=== PATIENT | female | born 1960 | race Caucasian/White ===

== ENCOUNTER 2025-04-04 22:05 | Emergency (ER) | payer MEDICARE, OTHER, SELFPAY ==
[2025-04-04 22:07] VITALS: BP 176/128
[2025-04-04 22:28] LABS: Hematocrit 43.6 % (37.0-47.0); Hemoglobin 14.8 g/dL (12.0-16.0); Mean Corp Hgb Conc. 33.9 g/dL (33.0-37.0); Mean Corpuscular Volume 87.6 fL (81.0-99.0); Nucleated Red Blood Cells % 0 %; Platelet Count 171 10^3/uL (130-400); Red Cell Dist. Width 13.2 % (11.5-14.5)
[2025-04-04 23:21] LABS: ALT (SGPT) 16 U/L (0-35); AST (SGOT) 20 U/L (14-36); Albumin 4.7 g/dl (3.5-5.0); Alkaline Phosphatase 78 U/L (38-126); Blood Urea Nitrogen 7 mg/dl (7-17); Calcium 10.4 mg/dl (8.4-10.2); Carbon Dioxide 26 mmol/L (22-30); Chloride 104 mmol/L (98-107); Glucose 113 mg/dl (70-99); Lipase 52 U/L (23-300); Potassium 4.3 mmol/L (3.5-5.1); Sodium 138 mmol/L (135-145); Total Protein 7.7 g/dl (6.3-8.2); eGFR > 60.00
[2025-04-05 01:09] VITALS: BMI 43.7
[2025-04-05 01:21] VITALS: BP 191/101
--- NOTE | 2025-04-05 02:20 | ED.GENMED ---
History of Present Illness
<Xochilt Campos PA-C - Last Filed: 04/05/25 11:07>
General
Chief Complaint: Abdominal Symptoms
Source: patient
Exam Limitations: none
Time Seen by Provider: 04/05/25 01:26
Nursing documentation reviewed up to this point in time: agreed with
History of Present Illness
History of Present Illness:
Note:
CHIEF COMPLAINT(S)
Nausea, vomiting, lightheadedness, and diarrhea.
HISTORY OF PRESENT ILLNESS
The patient is a 64-year-old female with a known history of atrial fibrillation on xarelto, htn, hlp, chronic bronchitis who presents with symptoms of nausea, vomiting, lightheadedness, and diarrhea. She reports that the lightheadedness and
gastrointestinal symptoms began on Thursday, with one episode of diarrhea occurring that day and no subsequent bowel movements. She has experienced persistent nausea and lightheadedness since. The patient describes her abdominal pain as non-constant
and more of an unease than sharp pain. She vomited twice today. She reports inadequate oral intake of food and fluids recently and feels generally weakened and uninterested in engaging in regular activities. She does manage to sip sally cheikh and
Gatorade occasionally.
She also shared that she has been hospitalized twice for five days each due to similar gastrointestinal symptoms; however, despite testing, results have generally been unremarkable. Previously, she underwent an upper endoscopy which showed no
significant abnormalities. She awaits a follow-up appointment with her gastrointestinal specialist in 2 weeks. The patient is currently managed at home with nursing visits twice a week to assist with medications and dietary encouragement. These
symptoms have been ongoing for 2 months but have seemed to acutely worsened previously well controlled with reglan. She denies chest pain, shortness of breath. She denies syncopal episodes.
MEDICATIONS
The patient has been taking Reglan (metoclopramide) three times a day, with the last dose taken this afternoon.
PHYSICAL EXAM
Nursing notes reviewed and vital signs reviewed. Blood pressure was noted to be elevated, attributed to the patients current symptoms rather than medication non-compliance.
General: Patient is well appearing and in no acute distress; non-toxic
Skin: Warm and dry, no rashes or lesions
Head: Normocephalic, atraumatic
Eyes: Sclera non-icteric. EOMs intact.
Cardiac: Regular rate and rhythm, no murmurs
Peripheral Vascular: No lower extremity swelling or edema
Pulm: Normal respiratory effort, no wheezes, rales, or rhonchi
Abdomen: No abdominal tenderness to palpation, abdomen is soft
Neuro: CN II-XII intact, no focal neurologic deficits.
Psychiatric: Appropriate mood and affect.
PROBLEM LIST
Acute Problems:
- Nausea and vomiting
- Lightheadedness
- Diarrhea
- Abdominal discomfort
Chronic Problems:
- Atrial fibrillation
PLAN
- Administer intravenous metoclopramide to alleviate nausea.
- Provide intravenous fluids to address dehydration and improve nausea.
- Perform a computed tomography scan of the abdomen to evaluate for potential acute conditions such as bowel obstruction.
DIFFERENTIAL DIAGNOSIS
The Differential Diagnosis includes, in no particular order and is not limited to:
1. Gastroenteritis
2. Medication side effect
3. Peptic ulcer disease
4. Bowel obstruction
5. Electrolyte imbalance
6. Dehydration
7. Gastritis
8. Pancreatitis
9. Ischemic bowel disease
10. Labyrinthitis (related to dizziness)
CHART REVIEW
I was provided with hospital discharge summary from patient's . Patient was admitted to [facility] on and sent home on February 28, 2025. Patient was admitted for 3 days of worsening chronic nausea and vomiting and patient had
multiple recent admissions at [facility] for the same GI issues with no improvement with antiemetic and bowel regimen. She was found to have unclear etiology of her pain. They suspected that it may be related to her chronic opioid
medications. They suspected porphyria however less likely presentation of this due to life without seizure or peripheral neuropathy. She had a CAT scan of her head which was negative for bleed and she had a CT of the head and neck which was
normal. They also thought the distress discontinuation of Reglan may have contributed to her current worsening of her symptoms.
Reviewed endoscopy report from 03/16/2025, the esophagus was found to be normal and D2 colon appeared normal impression was normal esophagus with mild leak erythematous mucosa in the gastric body and antrum
Reviewed ER physician documentation from 12/03/22
MDM/DISPO
The patient is a 64-year-old female with a known history of atrial fibrillation on xarelto, htn, hlp, chronic bronchitis who presents with symptoms of nausea, vomiting, lightheadedness, and diarrhea. She reports that the lightheadedness and
gastrointestinal symptoms began on Thursday, with one episode of diarrhea occurring that day and no subsequent bowel movements. she was just seen and hospitalized and [facility] for similar symptoms. She had been ruled out for ischemic bowel
disease, ACS, had normal upper endoscopy, and her symptoms were attributed to oxycodone use. Today she feels like her symptoms are worse. This weekend she had trouble getting food down without vomiting. On exam, she is well appearing in no acute
distress. No abdominal tenderness.
Blood work undetectable. Troponin normal. CT scan without acute findings. Patient received IV fluids, reglan, zofran, pepcid feeling much better. Patient has follow up with GI in 2 weeks.
7 AM�Case signed out to Tereso [facility] pending repeat troponin
Review of Systems
<Xochilt Campos PA-C - Last Filed: 04/05/25 11:07>
Review of Systems
All Other Systems: ROS reviewed and negative except as documented in HPI and ROS
Phy Exam
<Xochilt Campos PA-C - Last Filed: 04/05/25 11:07>
Physical Exam
Physical Exam:
see hpi
Course
<Xochilt Campos PA-C - Last Filed: 04/05/25 11:07>
Orders/Labs/Results
Orders:
Orders
04/04/25 22:18
Complete Blood Count/With Diff Urgent
Comprehensive Metabolic Panel Urgent
Lactic Acid Urgent
Lipase Urgent
04/05/25 01:42
Diphenhydramine [Benadryl] 12.5 mg IV NOW STA
Metoclopramide [Reglan] 10 mg IV NOW STA
04/05/25 01:43
CT Abd/pelvis W Iv Cont Urgent
Comment:
Reason For Exam: periumbilical pain
04/05/25 03:13
0.9% Sodium Chloride 1000 ml [Nss] 1,000 ml IV BOLUS
04/05/25 03:16
Electrocardiogram (*1) Urgent
Reason for Study: Other
Other Reason for Exam: htn, nausea
Comment: hypertension, nausea
04/05/25 03:26
Vital Signs- Treatment ONCE
Frequency: q30m
04/05/25 03:50
Troponin I Urgent
04/05/25 05:37
Famotidine [Pepcid] 20 mg IV NOW STA
Ondansetron Injectable [Zofran] 4 mg IV NOW STA
04/05/25 05:57
Electrocardiogram (*1) Urgent
Reason for Study: Chest Pain
04/05/25 07:07
Troponin I Urgent
Abnormal Lab Results
04/04/25
22:18
MPV 11.8 H fL
(7.4-10.4)
Lymphocytes % 17.8 L %
(20.5-51.1)
Creatinine 0.5 L mg/dL
(0.6-1.0)
Glucose 113 H mg/dl
(70-99)
Calcium 10.4 H mg/dl
(8.4-10.2)
04/04/25 22:18
04/04/25 22:18
Vital Signs
Initial and Last Documented VS:
Initial Vital Signs
Temp Pulse Resp BP Pulse Ox
98.1 F 72 16 176/128 98
04/04/25 22:07 04/04/25 22:07 04/04/25 22:07 04/04/25 22:07 04/04/25 22:07
Last Documented Vital Signs
Temp Pulse Resp BP Pulse Ox
98.1 F 68 18 174/82 96
04/04/25 22:07 04/05/25 08:15 04/05/25 08:15 04/05/25 06:53 04/05/25 08:00
<Dimitri Serrato PA-C - Last Filed: 04/05/25 08:15>
Orders/Labs/Results
Orders:
Orders
04/04/25 22:18
Complete Blood Count/With Diff Urgent
Comprehensive Metabolic Panel Urgent
Lactic Acid Urgent
Lipase Urgent
04/05/25 01:42
Diphenhydramine [Benadryl] 12.5 mg IV NOW STA
Metoclopramide [Reglan] 10 mg IV NOW STA
04/05/25 01:43
CT Abd/pelvis W Iv Cont Urgent
Comment:
Reason For Exam: periumbilical pain
04/05/25 03:13
0.9% Sodium Chloride 1000 ml [Nss] 1,000 ml IV BOLUS
04/05/25 03:16
Electrocardiogram (*1) Urgent
Reason for Study: Other
Other Reason for Exam: htn, nausea
Comment: hypertension, nausea
04/05/25 03:26
Vital Signs- Treatment ONCE
Frequency: q30m
04/05/25 03:50
Troponin I Urgent
04/05/25 05:37
Famotidine [Pepcid] 20 mg IV NOW STA
Ondansetron Injectable [Zofran] 4 mg IV NOW STA
04/05/25 05:57
Electrocardiogram (*1) Urgent
Reason for Study: Chest Pain
04/05/25 07:07
Troponin I Urgent
Abnormal Lab Results
04/04/25
22:18
MPV 11.8 H fL
(7.4-10.4)
Lymphocytes % 17.8 L %
(20.5-51.1)
Creatinine 0.5 L mg/dL
(0.6-1.0)
Glucose 113 H mg/dl
(70-99)
Calcium 10.4 H mg/dl
(8.4-10.2)
04/04/25 22:18
04/04/25 22:18
Vital Signs
Initial and Last Documented VS:
Initial Vital Signs
Temp Pulse Resp BP Pulse Ox
98.1 F 72 16 176/128 98
04/04/25 22:07 04/04/25 22:07 04/04/25 22:07 04/04/25 22:07 04/04/25 22:07
Last Documented Vital Signs
Temp Pulse Resp BP Pulse Ox
98.1 F 68 18 174/82 96
04/04/25 22:07 04/05/25 08:15 04/05/25 08:15 04/05/25 06:53 04/05/25 08:00
<Xochilt Campos PA-C - Last Filed: 04/05/25 11:07>
*Pulse Oximetry
SaO2: 98
Oxygen Mode of Delivery: Room air
Patient hypoxic: no
*Critical Care Note
Total Time (30-74mins, 75-104mins- exclusive of procedures): Not Applicable
<Dimitri Serrato PA-C - Last Filed: 04/05/25 08:15>
Update Note
Update Note:
DC of care of patient upon pending troponin. Repeat troponin improved. No acute findings on today's workup. Stable for discharge
ED Attending Note
Keishalt;Xochilt Campos PA-C - Last Filed: 04/05/25 11:07>
-
Portions of this chart may have been created with voice recognition software.� Occasional wrong word or��sound alike� substitutions may have occurred due to the inherent limitations of voice recognition software.
Discharge Plan
Departure
Patient Disposition: Home (Routine Discharge)
Date of Disposition: 04/05/25
Time of Disposition: 08:08
Patient with high blood pressure during this ER visit?: Yes
Condition: Good
Discharge Problem:
Nausea & vomiting, Episodic lightheadedness
Instructions: Nausea and Vomiting, Adult (DC), BLOOD PRESSURE
Prescriptions:
New
omeprazole 40 mg capsule,delayed release(DR/EC)
40 mg PO DAILY Qty: 14 0RF
No Action
losartan 50 mg Tablet
75 mg PO DAILY
atorvastatin 10 mg Tablet
10 mg PO QPM
metoprolol succinate 100 mg Tablet Extended Release 24 Hr
100 mg PO DAILY
pantoprazole 40 mg Tablet,Delayed Release (Dr/Ec)
40 mg PO TID PRN (Reason: nausea)
levothyroxine 200 mcg Tablet
200 mcg PO DAILY
scopolamine base 1 mg over 3 days Patch 3 Day
1 patch TRANSDERMAL Q3D
buprenorphine 5 mcg/hour Patch Weekly
1 patch TRANSDERMAL Q7D
Xarelto 20 mg Tablet
20 mg PO QPM
acetaminophen [Tylenol Arthritis] 650 mg Tablet Extended Release
1,300 mg PO Q8H PRN (Reason: headaches)
alum-mag hydroxide-simeth [Mylanta] 200-200-20 mg/5 mL Suspension
30 ml PO TID
polyethylene glycol 3350 [Miralax] 17 gram/dose Powder
4 g PO DAILY PRN (Reason: constipation)
metoclopramide HCl [Reglan] 10 mg Tablet
10 mg PO TID PRN (Reason: nausea)
Zofran
4 mg PO TID PRN (Reason: nausea)
senna
2 tab PO TID PRN (Reason: constipation)
Referrals:
UNKNOWN - PT DOES,NOT KNOW [Family Provider]
Activity Restrictions/Additional Instructions:
Please follow-up with your scheduled GI appointment in 2 weeks. Please continue to monitor your symptoms. Please follow-up with your scheduled cardiology appointment.
PLEASE RETURN EMERGENCY DEPARTMENT SHOULD YOU DEVELOP ACUTE WORSENING OR SYMPTOMS, CHEST PAIN, SHORTNESS OF BREATH INABILITY TOLERATE ORAL INTAKE, FEVERS OR CHILLS, RECTAL BLEEDING, DARK TARRY STOOLS, OR ANY OTHER SIGNS OR SYMPTOMS WORRISOME TO YOU.
Interventions
Interventions:
*Risk Screen - Suicide Last Done: 04/05/25 01:09
*General Assessment Last Done: 04/05/25 01:09
*Neglect/Abuse Screening Last Done: 04/05/25 07:23
*ED- Fall Risk Assessment Last Done: 04/05/25 01:09
*ED COVID-19 Vaccine History Last Done: 04/05/25 01:09
*Nursing Disposition Last Done: 04/05/25 08:28
AC-Dqiszi-Mewiedlqtt Assessment Last Done: 04/05/25 06:59
Discharge Date and Time
Discharge Date/Time: 04/05/25 08:40
Print Language: BELARUSIAN
[2025-04-05 02:24] VITALS: BP 175/72
[2025-04-05] MEDS: REGLAN 10 MG IV (02:26)
[2025-04-05] MEDS: BENADRYL 12.5 MG IV (02:26)
[2025-04-05 03:00] VITALS: BP 158/94
[2025-04-05] MEDS: NSS 1000 IV (03:15)
[2025-04-05 04:00] VITALS: BP 169/88
[2025-04-05 04:26] LABS: Troponin I 0.019 ng/ml
[2025-04-05 05:00] VITALS: BP 166/73
[2025-04-05] MEDS: PEPCID 20 MG IV (05:51)
[2025-04-05] MEDS: ZOFRAN 4 MG IV (05:52)
[2025-04-05 06:53] VITALS: BP 174/82
[2025-04-05 07:50] LABS: Troponin I 0.013 ng/ml
== END 2025-04-05 08:40 | disposition home or self-care (01) ==
LOC: EMR 22:05
PROVIDERS: Physician Assistant; EMERGENCY PHYSICIAN Emergency Medicine
DX: R11.2 Nausea with vomiting, unspecified (principal); E86.0 Dehydration; R42 Dizziness and giddiness; I48.91 Unspecified atrial fibrillation; E78.5 Hyperlipidemia, unspecified; I10 Essential (primary) hypertension; Z79.01 Long term (current) use of anticoagulants
CPT/HCPCS: 96374; 96375; 96361; 99284; 74177; 80053; 83605; 83690; 84484; 85025; 93005; Q9967

== ENCOUNTER 2025-05-01 08:05 | Inpatient (IN) | payer MEDICARE, OTHER, SELFPAY ==
[2025-04-25] VITALS (12 sets, daily range): BP systolic 118–160; BP diastolic 60–97; PULSE 76–84; BMI 40.1; BMI 38.6
[2025-04-25 14:56] LABS: Hematocrit 45.7 % (37.0-47.0); Hemoglobin 16.0 g/dL (12.0-16.0); Mean Corp Hgb Conc. 35.0 g/dL (33.0-37.0); Mean Corpuscular Volume 85.6 fL (81.0-99.0); Nucleated Red Blood Cells % 0 %; Platelet Count 190 10^3/uL (130-400); Red Cell Dist. Width 13.3 % (11.5-14.5)
[2025-04-25 15:08] LABS: ALT (SGPT) 14 U/L (0-35); AST (SGOT) 20 U/L (14-36); Albumin 4.4 g/dl (3.5-5.0); Alkaline Phosphatase 84 U/L (38-126); Blood Urea Nitrogen 8 mg/dl (7-17); Calcium 9.8 mg/dl (8.4-10.2); Carbon Dioxide 24 mmol/L (22-30); Chloride 100 mmol/L (98-107); Glucose 128 mg/dl (70-99); Lipase 81 U/L (23-300); Potassium 4.4 mmol/L (3.5-5.1); Sodium 134 mmol/L (135-145); Total Protein 7.4 g/dl (6.3-8.2); eGFR > 60.00
--- NOTE | 2025-04-25 17:01 | ED.GENMED ---
History of Present Illness
General
Chief Complaint: Weakness
Source: patient
Exam Limitations: none
Time Seen by Provider: 04/25/25 16:33
Nursing documentation reviewed up to this point in time: agreed with
History of Present Illness
History of Present Illness:
Patient is a 64-year-old male with history of A-fib patient was seen here previously April 05, 2025 hypertension hyperlipidemia presents to the ER for evaluation of GI issues since January and it was documented then that patient was admitted to [facility] in February for chronic nausea and vomiting and has had previous multiple missions at [facility] as well. At that time it was thought to be attributed to her chronic opiate use (for chronic hip pain )and there was no definitive etiology
for her pain. She has however stopped her buprenorphine patch April 07 and symptoms have not resolved in fact they have worsened.
It was documented that while hospitalized in February patient was evaluated and ruled out for ischemic bowel disease ACS and had a normal upper endoscopy.
Patient is followed by Dr. Nassar ( GI at [facility] ) patient saw him last Thursday and was started on Questran for loose stools. She only to take it 2 days and her appetite even worsened. Patient presents today because of complete weakness and
no appetite at all. She could barely stand and feels very dizzy when she stands up. Family reports she has been laying in bed and not able to get out of bed. She has not been eating or drinking.
She currently denies abd pain.
Family reports her symptoms have been continuing to get worse since January despite everything coming back as negative.
Phy Exam
General Physical Exam
General Presentation: no apparent distress
General age: appears stated age
General Skin: warm and dry
General Habitus: normal
General Mental: alert
General Hydration: dry mucous membranes
Cardiovascular Exam
Cardiovascular Exam: irregularly irregular
Pulmonary Exam
Pulmonary Exam: lungs clear and no respiratory distress
Gastrointestinal Exam
Gastrointestinal Exam: non tender and soft
Neurological Exam
Neurological Exam: alert
Musculoskeletal Exam
Musculoskeletal Exam: full ROM
Skin Exam
Skin Exam: normal color and warm/dry
Psychiatric Exam
Psychiatric Exam: normal mood/affect
Course
Orders/Labs/Results
Orders:
Orders
04/25/25 14:43
Complete Blood Count/With Diff Urgent
Comprehensive Metabolic Panel Urgent
Lipase Urgent
04/25/25 17:16
0.9% Sodium Chloride 1000 ml [Nss] 1,000 ml IV BOLUS
Ondansetron Injectable [Zofran] 4 mg IV NOW STA
04/25/25 17:17
IV Insert/Care/Rem.- Treatment PRN
04/25/25 17:18
Orthostatic VS- Treatment ONCE
04/25/25 18:18
UA Reflex to Culture [Urinalysis Reflex To Culture] Urgent
Date Specimen was Collected: 04/25/25
Time Specimen was Collected: 18:01
Urine Microscopic Reflex Cult Urgent
04/25/25 19:41
Admit/Transfer Patient As Directed
Co-Sign Provider:
Level of Care: Observation services
Assign to:: Medical/Surgical
Physician / Group: Brinda
Diagnosis: Anorexia
PRN Pain Medication Management As Directed
May give lesser potent ordered pain med per pt: Yes
preference::
Protocol:: Medication orders for pain may be administered in a
manner that supports deferring to patient preference
when the pt is:
- Requesting an ordered lesser potent pain medication.
Least to most potent pain medications are defined
as: acetaminophen < NSAID < tramadol < opioids
(morphine, oxycodone, hydromorphone).
- Requesting a lesser dose of the same medication IF
ORDERED.
- Requesting a less intrusive route of administration
if both routes are prescribed by the provider (PO <
IV).
04/25/25 19:42
Code Status As Directed
Resuscitation Status: Full Code
04/25/25 19:46
Alprazolam [Xanax] 0.25 mg PO NOW STA
Atorvastatin [Lipitor] 10 mg PO NOW STA
04/25/25 19:47
Rivaroxaban [Xarelto] 20 mg PO ONCE ONE
04/25/25 20:35
Acetaminophen [Tylenol] 650 mg PO Q4HPRN PRN
Bisacodyl [Dulcolax] 10 mg RECTAL [id number] PRN
Dextrose 5%/Lactringers 1000ML [D5lr] 1,000 ml IV 100 mls/hr
Docusate W/Senna [Senokot-S] 1 tablet PO BIDPRN PRN
Ondansetron Injectable [Zofran] 4 mg IV Q6HPRN PRN
Oxybutynin Chloride [Ditropan] 5 mg PO BID
Polyethylene Glycol Powder [Miralax] 17 grams PO DAILYPRN PRN
04/25/25 20:35
VTE Contraindication Routine
VTE Mechanical Device Contraindication: Medical Contraindication
Pharmocologic Contraindication: Medical Contraindication
Activity As Directed
Activity Level: With Assistance
Orthostatic Vital Signs As Directed
Orthostatic VS Frequency: Daily
Vital Signs As Directed
Frequency: Per unit guidelines
Pulse Ox/spot Check [RESP] Routine
Quantity: 1
Pt Eval And Treat Routine
Activity Level: With Assistance
04/26/25 Breakfast
Regular
Oral Supplement (If unsure of flavor order apple or vanilla): Ensure Enlive Vanilla
Supplement Frequency: TID
Basic Metabolic Panel IN AM
Complete Blood Count/No Diff IN AM
Lipase IN AM
Magnesium IN AM
Prealbumin (Transthyretin) IN AM
TSH IN AM
Vitamin B12 IN AM
Levothyroxine [Synthroid] 200 mcg PO DAILY @ 0600
04/26/25 08:00
Losartan [Cozaar] 100 mg PO DAILY
Metoprolol Xl [Toprol Xl] 100 mg PO DAILY
Pantoprazole [Protonix] 40 mg PO DAILY
Sertraline HCl [Zoloft] 100 mg PO DAILY
04/26/25 18:00
Atorvastatin [Lipitor] 10 mg PO QPM
Rivaroxaban [Xarelto] 20 mg PO QPM
Abnormal Lab Results
04/25/25 04/25/25
14:43 18:18
MPV 12.2 H fL
(7.4-10.4)
Absolute Neuts (auto) 7.9 H 10^3/uL
(1.4-6.5)
Absolute Lymphs (auto) 0.8 L 10^3/uL
(1.2-3.4)
Absolute Monos (auto) 0.7 H 10^3/uL
(0.1-0.6)
Neutrophils % 82.9 H %
(42.2-75.2)
Lymphocytes % 8.3 L %
(20.5-51.1)
Sodium 134 L mmol/L
(135-145)
Creatinine 0.5 L mg/dL
(0.6-1.0)
Glucose 128 H mg/dl
(70-99)
Total Bilirubin 1.9 H mg/dl
(0.2-1.3)
Urine Albumin (Reflex) 2+ A
(Neg - Trace)
04/25/25 14:43
04/25/25 14:43
Vital Signs
Initial and Last Documented VS:
Initial Vital Signs
Temp Pulse Resp BP Pulse Ox
97.7 F 85 20 152/92 99
04/25/25 14:37 04/25/25 14:37 04/25/25 14:37 04/25/25 14:37 04/25/25 14:37
Last Documented Vital Signs
Temp Pulse Resp BP Pulse Ox
97.7 F 88 18 155/75 98
04/25/25 20:42 04/25/25 20:42 04/25/25 20:42 04/25/25 20:42 04/25/25 20:42
MDM/Problems Addressed
Differential Diagnosis Includes:
Not limited to weakness dehydration, electrolyte abnormality
MDM/Problems Addressed:
As documented patient is a 64-year-old female with chronic nausea vomiting. Symptoms started in January with no clear diagnosis. Patient has had a full workup at [facility] with multiple scans labs etc. with no diagnosis. It was thought at 1
point that this was from chronic narcotics. She was on a pain patch due to osteoarthritis of the left hip however that was stopped April 07. Symptoms seem to have worsened. Patient complaining of extreme weakness dizziness and unable to get out
of bed. Family reports patient has been in bed for the past several days. Patient is dry on exam though no acute concerning findings on labs. She was hydrated here and given Zofran will require mission for dehydration weakness.
*Pulse Oximetry
SaO2: 99
Oxygen Mode of Delivery: Room air
Patient hypoxic: no
*Critical Care Note
Total Time (30-74mins, 75-104mins- exclusive of procedures): Not Applicable
ED Attending Note
-
Portions of this chart may have been created with voice recognition software.� Occasional wrong word or��sound alike� substitutions may have occurred due to the inherent limitations of voice recognition software.
Discharge Plan
Departure
Patient Disposition: Admit
Date of Disposition: 04/25/25
Time of Disposition: 19:16
Admit to: Med/Surg
Admit to doctor: hospitalist
Presentation/result/management discussed w/ accepting MD/DO: Hospitalist
Patient with high blood pressure during this ER visit?: No
Condition: Fair
Covid-19: Not Applicable
Discharge Problem:
Weakness, Acute dehydration, Dizziness
Interventions
Interventions:
*Risk Screen - Suicide Last Done: 04/25/25 14:37
*General Assessment Last Done: 04/25/25 14:37
*Neglect/Abuse Screening Last Done: 04/25/25 17:49
*ED- Fall Risk Assessment Last Done: 04/25/25 17:49
*ED COVID-19 Vaccine History Last Done: 04/25/25 17:49
*Nursing Disposition Last Done: 04/25/25 20:26
ED- Cardiac Assessment Last Done: 04/25/25 17:59
ED- Neurological Assessment Last Done: 04/25/25 17:59
ED- Pulmonary Assessment Last Done: 04/25/25 17:59
Discharge Date and Time
Discharge Date/Time: 04/25/25 20:26
[2025-04-25] MEDS: NSS 1000 IV (17:46)
[2025-04-25] MEDS: ZOFRAN 4 MG IV ×2 (17:46→22:33)
[2025-04-25 18:28] LABS: Urine Character Clear (Clear)
[2025-04-25 18:40] LABS: Urine Red Blood Cell 0-2 /HPF (0-2)
--- NOTE | 2025-04-25 19:20 | HPS.HSE ---
Family Physician
-
Family Physician: Alicia Delatorre NP
Chief Complaint
-
Weakness, intractable nausea vomiting
History of Present Illness
This is a 64-year-old female with past medical history significant for atrial fibrillation on anticoagulation, status post ablation, hyperlipidemia, hypothyroid, lower urinary tract symptoms, chronic fractures right knee status post multiple joint
replacements who presents to the emergency department with ongoing intractable nausea and vomiting and weakness since January.
Patient reports admission to [facility] in February for symptoms and had extensive workup and no acute findings determined. It was thought that this could be secondary to opiate use for which she buprenorphine patch and additional opioids was
discontinued in April. She has had upper endoscopy that was normal. She had imaging and evaluation that ruled out ischemic bowel disease as well as ACS. She reported that she was recently started on Questran for loose stools/IBS which resulted
in improvement in her bowel habits however she developed a significant decreased appetite. She reports nausea with any attempted food intake. To smell of food results and nausea. She is not vomiting. She does not have any trouble swallowing.
She denies regurgitation. She denies any chest pain. Patient reports that since the last 7 days she has had no p.o. intake. She became lightheaded and dizzy about 2 days ago. She actually also fell. She has increased lethargy and weakness and
states she has not been able to get out of bed for the last 7 days. She reports intermittent night sweats over the last 2 days. She denies any fevers chills or shortness of breath. She denies any rash. She reports feeling anxious.
In the emergency department, patient had a blood pressure of 118/60, pulse of 78 satting at 7% on room air. She was afebrile. CBC was unremarkable, electrolytes BUN/creatinine were all in the normal range. LFTs were normal. UA was unremarkable.
Medical History
Past Medical History
Past Medical History: Reports Arrhythmia (Proximal atrial fibrillation status post ablation), Hypercholesterolemia, Hypothyroidism, Psychiatric (Depression) and Other
Past Surgical History: Reports Appendectomy and Orthopedic (Right knee replacement, left knee replacement, right hip replacement)
Social History
Tobacco: Non-smoker
Alcohol: None
Drug: None
Personal:
Living: With Family
Family History
Family History: Not pertinent
Allergies / Home Medications
Allergies reflects when Allergies were last updated in [employer].
Home Medications with original date entered in [employer]
Allergy/Medication List:
Allergies
Allergy/AdvReac Type Severity Reaction Status Date / Time
lisinopril Allergy cough Verified 04/25/25 14:37
Home Medications
Zofran 4 mg PO TID PRN nausea 04/05/25
acetaminophen 650 mg tablet,extended release 1,300 mg PO Q8H PRN headaches 04/05/25
aluminum-mag hydroxide-simethicone 200 mg-200 mg-20 mg/5 mL oral susp 30 ml PO TID nausea 04/05/25
atorvastatin 10 mg tablet 10 mg PO QPM 04/05/25
buprenorphine 5 mcg/hour weekly transdermal patch 1 patch transdermal Q7D 04/05/25
levothyroxine 200 mcg tablet 200 mcg PO DAILY 04/05/25
losartan 50 mg tablet 75 mg PO DAILY 04/05/25
metoclopramide HCl 10 mg tablet (Reglan) 10 mg PO TID PRN nausea 04/05/25
metoprolol succinate 100 mg tablet,extended release 24 hr 100 mg PO DAILY 04/05/25
omeprazole 40 mg capsule,delayed release 40 mg PO DAILY #14 caps 04/05/25
pantoprazole 40 mg tablet,delayed release 40 mg PO TID PRN nausea 04/05/25
polyethylene glycol 3350 17 gram/dose oral powder (Miralax) 4 g PO DAILY PRN constipation 04/05/25
rivaroxaban 20 mg tablet (Xarelto) 20 mg PO QPM 04/05/25
scopolamine base 1 mg over 3 days transdermal patch 1 patch transdermal Q3D 04/05/25
senna 2 tab PO TID PRN constipation 04/05/25
Review of Systems
-
History Source: Patient
Constitutional: Reports Fatigue and Night Sweats; Denies Fever
EENT: Reports No Symptoms
Respiratory: Reports No Symptoms
Cardiac: Reports No Symptoms
Abdomen/GI: Reports Nausea and Anorexia
: Reports No Symptoms
Musculoskeletal: Reports No Symptoms
Skin: Reports No Symptoms
Neurological: Reports Weakness
Endocrine: Reports No Symptoms
Hematologic/Lymphatic: Reports No Symptoms
Psych: Reports No Symptoms
Physical Exam
Vital Signs
Vital Signs
Temp Pulse Resp BP Pulse Ox
97.7 F 78 16 118/60 97
04/25/25 14:37 04/25/25 19:00 04/25/25 19:00 04/25/25 19:00 04/25/25 19:00
Physical Exam
General: Well Developed, Well Nourished, No Apparent Distress and Morbidly Obese
HEENT: NormoCephalic, Moist mucous membranes and Atraumatic
Respiratory: Clear
Cardiac: S1/S2 and Regular Rhythm; No Murmur or Rub
GI: Soft, Non Tender, Non Distended and Normal Bowel Sounds; No Organomegaly
Rectal: Deferred by Provider
Musculoskeletal: No Clubbing, No Cyanosis and No Edema
Skin: No Rash
Neuro: AO x 3 and Nonfocal/grossly intact
Psych: Calm
Laboratory Results
-
04/25/25 14:43
04/25/25 14:43
Laboratory Results
Total Bilirubin 1.9 mg/dl (0.2-1.3) H 04/25/25 14:43
AST 20 U/L (14-36) 04/25/25 14:43
ALT 14 U/L (0-35) 04/25/25 14:43
Alkaline Phosphatase 84 U/L (38-126) 04/25/25 14:43
Lipase 81 U/L (23-300) 04/25/25 14:43
Data Reviewed
-
Lab Data: Labs Reviewed by me
Old Records: Reviewed
Impression/Plan
-
IMPRESSION:
64-year-old female with past medical history of paroxysmal atrial fibrillation, hypothyroid, hyperlipidemia, hypertension presenting to the Emergency Department with essentially failure to thrive in the setting of worsening appetite over the last
few weeks and significantly decreased appetite over the last 7 days with no p.o. intake, sleepiness lethargy and dehydration. She has had extensive workup which has included an EGD showing no abnormalities, workup for ischemic bowel which was
negative, and no evidence for gastroparesis, malabsorption or pancreatic insufficiency. She has no acute symptoms at this time.
PLAN:
Loss of appetite -unclear etiology with negative workup back pain as stated above. She is however dehydrated and hypovolemic at this time.
-Admit to MedSurg observation
-Continue IV fluids with dextrose
-Continue antiemetics and PPI
-Protein calorie malnutrition labs
-GI consultation
-Consider initiation of mirtazapine
-Check thyroid
-Orthostatic vital sign
-PT OT
Atrial fibrillation -permanent A-fib, rate controlled
-Continue oral Xarelto
Hyperlipidemia
-Continue atorvastatin
Hypothyroid
- Continue levothyroxine
DVT prophylaxis�on Xarelto
CODE STATUS�full code
[2025-04-25] MEDS: XANAX 0.25 MG PO ×2 (20:17→22:14)
[2025-04-25] MEDS: XARELTO 20 MG PO (20:18)
[2025-04-25] MEDS: LIPITOR 10 MG PO (20:18)
[2025-04-25] MEDS: DITROPAN 5 MG PO (22:03)
[2025-04-25] MEDS: D5LR 1000 IV (22:03)
--- NOTE | 2025-04-25 22:53 | PTCARENOTE ---
Patient arrived via stretcher. AAOX3 with forgetfulness. Bed alarm applied to bed due to forgetfulness and weakness. No c/o pain or discomfort. Patient did complain of anxiety. STAT one time medication given for anxiety given. Oriented to unit. Call
cook within reach.
--- NOTE | 2025-04-26 02:43 | DOWNTIME ---
There was a [employer] Client Government Affairs Director Downtime on 04/26/2025 from 0100 to 04/26/2025 at 0235. Downtime documentation of patient's care, including medication administrations, has been reconciled in the electronic record per guidelines. Refer to the
patient's paper chart under the miscellaneous tab to see printed paper medication records and downtime forms.
[2025-04-26] MEDS: SYNTHROID 200 MCG PO (05:59)
[2025-04-26 07:13] LABS: Hematocrit 42.1 % (37.0-47.0); Hemoglobin 14.0 g/dL (12.0-16.0); Mean Corp Hgb Conc. 33.3 g/dL (33.0-37.0); Mean Corpuscular Volume 87.7 fL (81.0-99.0); Platelet Count 153 10^3/uL (130-400); Red Cell Dist. Width 13.6 % (11.5-14.5)
[2025-04-26 07:46] LABS: Blood Urea Nitrogen 6 mg/dl (7-17); Calcium 9.7 mg/dl (8.4-10.2); Carbon Dioxide 26 mmol/L (22-30); Chloride 105 mmol/L (98-107); Estimated Creatinine Clearance > 125 ml/min; Glucose 106 mg/dl (70-99); Lipase 50 U/L (23-300); Magnesium 1.6 mg/dl (1.6-2.3); Potassium 3.6 mmol/L (3.5-5.1); Sodium 138 mmol/L (135-145); eGFR > 60.00
[2025-04-26 07:55] VITALS: BP 154/98
[2025-04-26 07:56] LABS: Prealbumin (Transthyretin) 12.8 mg/dl (17.6-36.0)
[2025-04-26 08:24] LABS: TSH < 0.02 uIU/ml (0.47-4.68)
[2025-04-26 08:43] LABS: Vitamin B12 974 pg/ml (239-931)
[2025-04-26] MEDS: COZAAR 100 MG PO (08:44)
[2025-04-26] MEDS: PROTONIX 40 MG PO (08:44)
[2025-04-26] MEDS: ZOLOFT 100 MG PO (08:45)
[2025-04-26] MEDS: TOPROL XL 100 MG PO (08:45)
[2025-04-26] MEDS: DITROPAN 5 MG PO ×2 (08:45→20:16)
[2025-04-26] MEDS: D5LR 1000 IV ×2 (08:54→18:51)
--- NOTE | 2025-04-26 11:11 | CM ---
CM reviewed chart, patient seen bedside with daughter, initial assessment completed. Patient resides with her and son in a ranch style home, 3-4 steps to enter. Patient reports having a walker and cane in the home, is current with [facility],
denies SNF. PCP Lashay Delatorre, pharmacy [facility], patient does not believe she has prescription coverage. Patient denies insecurities at home. IVERSON form verbally reviewed, refused to sign, provided with copy, placed in chart. PT
ordered, will follow for any recommendations. CM will continue to follow for all discharge planning needs.
Plan; TBD, watch for therapy recommendations
[2025-04-26 11:41] VITALS: BMI 40.1
--- NOTE | 2025-04-26 12:04 | W.PN.HOSP.TC ---
Today's Communication/Plan
-
IVF
encourage diet
Check T4
GI consulted on admit
Bowel regimen
Assessment / Plan
Assessment / Plan
IMPRESSION:
64F w/ paroxysmal atrial fibrillation, hypothyroid, hyperlipidemia, hypertension p/w essentially failure to thrive in the setting of worsening appetite over the last few weeks and significantly decreased appetite over the last 7 days with no p.o.
intake, sleepiness lethargy and dehydration. She has had extensive workup which has included an EGD showing no abnormalities, workup for ischemic bowel which was negative, and no evidence for gastroparesis, malabsorption or pancreatic
insufficiency.
PLAN:
Loss of appetite -unclear etiology with negative workup back pain as stated above. She is however dehydrated and hypovolemic at this time.
renew IV fluids with dextrose
-Continue antiemetics and PPI
-Protein calorie malnutrition labs
-GI consultation
-Consider initiation of mirtazapine
-Orthostatic vital sign
-PT OT
Atrial fibrillation -permanent A-fib, rate controlled
-Continue oral Xarelto and toprol XL
Hyperlipidemia
-Continue atorvastatin
Hypothyroid
-on levothyroxine
low TSH <0.02
check T4
DVT prophylaxis�on Xarelto
CODE STATUS�full code
Anticipated Discharge: 24 - 48 hours
Subjective/Interval History
-
Date of Service: April 26, 2025
Patient ate a tiny bit of food this morning, still feeling nauseous but not vomiting. Denies abdominal pain. Notes that she has not had a bowel movement since Thursday. Daughter is at bedside notes that she has been having some episodes over the
last few months of shaking in her arms, cognitive slowing, headaches and within the last week a one-time flash of light while she was sleeping, and for these reasons she was supposed to have an MRI brain as an outpatient but has yet to be ordered.
Denies any weakness in either arm or leg. Notes bilateral toe numbness, denies neuropathy. Denies any changes in her vision.
Objective Data
-
Labs:
Laboratory Results
04/26/25
06:52
WBC 6.4
Hgb 14.0
Hct 42.1
Plt Count 153
Sodium 138
Potassium 3.6
Chloride 105
Carbon Dioxide 26
BUN 6 L
Creatinine 0.5 L
Glucose 106 H
Calcium 9.7
Vital Signs:
Vital Signs
Temp Pulse Resp BP Pulse Ox
97.7 F 87 18 154/98 98
04/26/25 07:55 04/26/25 07:55 04/26/25 07:55 04/26/25 08:44 04/26/25 08:00
Review of Systems
-
All other systems: Reviewed and negative
Physical Exam
-
General: No Apparent Distress
HEENT: Moist Mucous Membranes, Anicteric and PERRLA
Respiratory: Clear to Auscultation; Negative Wheezes, Rales or Rhonchi
Cardiac: Regular Rhythm and S1/S2; Negative Murmur, Rub or Gallop
GI: Soft, Nontender, Nondistended and Normal Bowel Sounds
Musculoskeletal: No Edema
Skin: Warm and Dry; Negative Rash, Ulcers or Lesions
Neuro: Awake and AO x 3
Hematologic / Lymphatic: No Lymphadenopathy
Psych: Calm
Data Reviewed
-
Labs: Labs Reviewed by me
[2025-04-26 15:03] VITALS: BP 124/67
[2025-04-26] MEDS: LIPITOR 10 MG PO (17:39)
[2025-04-26] MEDS: XARELTO 20 MG PO (17:40)
[2025-04-26] MEDS: XANAX 0.25 MG PO (18:54)
[2025-04-26] MEDS: SENOKOT-S 1 TABLET PO (20:16)
[2025-04-26 23:36] VITALS: BP 150/73
[2025-04-27] MEDS: D5LR 1000 IV ×2 (04:05→14:26)
[2025-04-27] MEDS: ZOFRAN 4 MG IV (06:33)
[2025-04-27 07:29] LABS: Hematocrit 38.3 % (37.0-47.0); Hemoglobin 12.9 g/dL (12.0-16.0); Mean Corp Hgb Conc. 33.7 g/dL (33.0-37.0); Mean Corpuscular Volume 88.5 fL (81.0-99.0); Nucleated Red Blood Cells % 0 %; Platelet Count 136 10^3/uL (130-400); Red Cell Dist. Width 13.7 % (11.5-14.5)
[2025-04-27] MEDS: PROTONIX 40 MG PO (07:49)
[2025-04-27] MEDS: COZAAR 100 MG PO (07:49)
[2025-04-27] MEDS: SENOKOT-S 1 TABLET PO ×2 (07:49→20:01)
[2025-04-27] MEDS: TOPROL XL 100 MG PO (07:49)
[2025-04-27] MEDS: ZOLOFT 100 MG PO (07:49)
[2025-04-27] MEDS: DITROPAN 5 MG PO ×2 (07:49→20:01)
[2025-04-27 08:01] LABS: ALT (SGPT) 12 U/L (0-35); AST (SGOT) 17 U/L (14-36); Albumin 3.4 g/dl (3.5-5.0); Alkaline Phosphatase 58 U/L (38-126); Blood Urea Nitrogen 3 mg/dl (7-17); Calcium 9.2 mg/dl (8.4-10.2); Carbon Dioxide 29 mmol/L (22-30); Chloride 107 mmol/L (98-107); Estimated Creatinine Clearance > 125 ml/min; Glucose 105 mg/dl (70-99); Potassium 3.5 mmol/L (3.5-5.1); Sodium 140 mmol/L (135-145); Total Protein 5.6 g/dl (6.3-8.2); eGFR > 60.00
[2025-04-27 08:10] VITALS: BP 150/81
--- NOTE | 2025-04-27 10:41 | CON.GI ---
Addendum entered and electronically signed by Kelsey Art Do, MD 04/27/25 13:19:
I saw and examined the patient.
The UTILITY BILL COLLECTION CLERK's note was reviewed and I agree with the note.
Comment: Goldie is a 64yo W wtih h/o Afib on xarelto, SCARLETT, and significant OA who was brought in my family for not eating/drinking well for the past week. Her daughter is L&D RN at [employer]. She and states that since 01/29/25 after having a
dinner out she starting having intermittent nausea, early satiety and poor PO intake. She lost total of 90lbs in the past year. Some of it was intentionally but since January 2025 unintentional. She feels LH dizziness and gait unsteady. She denies
odynophagia, dysphagia, vomiting, diarrhea or jaundice. There is epigastric abd fullness and pain that feels like 'menstral cramps.' She is chronically constipated and no BM in the past 9 days. She denies blood in stools. No new meds. She was
on naltrexone for hip pain NOT buproprion. She denies tobacco or ETOH intake. Vitals stable, exam slowed speech obese epigastric TTP obese 2+ LE swelling. Labs reviewed No anemia. Extensive GI workup done at [employer] and also [facility] with
EGD 03/16/2025 with gastritis. Cscope at [facility] last was 5yrs ago
Impression
- Wt loss and failure to thrive due to early satiety and nausea
ddx includes gastroparesis, functional constipation, less likely chronic cholecystitis
Thyroid function suggestive of hyperthyroid state which can be contributor
Also consideration of worsening depression
- Constipation
- GERD
- Chronic OA
- Afib on xarelto
- SCARLETT
- H/o hypothyroidism
- Depression
- SCARLETT
- AVB
Recommendations
- Elevated T4 noted , consider adjustment of levothyroxine
- Mag citrate 10oz x1 now as no BM in the past 9 days
- PPI IV BID
- Trial of remeron 15mg QHS
- Gastric emptying study tomorrow
- If above workup is neg consider HIDA scan
- NPO at [place]
- Low residue diet for now
- Nutritional consult oral supplements ordered
- Records request placed
Family updated bedside will follow with you
Original Note:
Consultation
-
Date/Time Consultation Requested: 04/26/25 1450
Date/Time Consultation Performed: 04/27/25 1045
Requesting Provider: Kaiser Griffith MD
Performing Provider: BLANCA Bergeron, Kelsey HWANG MD
Reason for Consultation: nausea/wt loss
Medical History
Chief Complaint / HPI
History of Present Illness:
Pt is 64yo with hx afib on Xarelto with prior ablation, HTN, hyperlipidemia, hypothyroidism,overactive bladder, factor V Leiden deficiency, MTHRF mutation, DVT, SCARLETT, arthritis obesity, depression, prior appe, prior hip and knee replacement with wt
loss over last years as due for joint replacement. She had lost about 60 lb then in January began with onset of nausea, vomiting, wt loss with inability to eat and further 40 lbs wt loss since that time. Family recall eating pizza prior to onset and
only medication change was adding Bupropion patch prior to onset. She has been to multiple inpatient and outpatient providers with continued symptoms since mid January including [facility], [facility], OP GI at [place] and [facility] with multiple tests
completed but still with symptoms. In review with patient she is feeling better but per family now presents as she was lethargic and not eating for 8 days prior to admission. she does admits to stopping Bupropion patch 2 weeks ago and additional
opioid also discontinued in April. Last evaluation was with [facility] and Questran was added with no improvement. Extensive imaging and EGD as noted. She also was on long term care phlebotomist Xarelto then recently went to Coumadin and switch back with cost issue.
At this time she admits to continued nausea and wt loss. She admits to some vomiting not daily. Variable amount. Larger amount prompting [facility] admission but sometimes small volumes. She admits to abdominal pain and feeling of stomach
ache. She had chronic constipation on senna and denies diarrhea or rectal bleeding. . TSH <0.02, T4 14, CBC stable, chemistry mild glucose elevation, bili 1.9, AST 20, ALT 14, alkh phos 84. albumin 4.4 on admission then drop to 3.4.
03/16/25- EGD normal esophagus, pssible <1 cm HH gastroesophageal flap valve classified as Hill grade II, fold presents opens with respiration, erythematous mucosa in gastric body and atnrum, normal duodenum
Past Medical History
Past Medical History: Arrhythmias (afib on Xarelto, first degree AV block, ), HTN, Hypercholesterolemia, Hypothyroidism, Psychiatric (depression, ) and Other (urinary incontinence , overactive bladder, factor V leiden deficiency, MTHRF mutation,
DVT, SCARLETT, arthritis)
Past Surgical History: Appendectomy, Cardiac (ablation ) and Orthopedic (left knee replacement, right knee replacement , right hip replacement )
Social History
Tobacco: Non-Smoker
Alcohol: None
Drug: None
Personal:
Living: With Family
Employment: Retired
Family History
Family History: Other (no family hx GI issues or malignancies )
Allergies / Home Medications
Allergy/AdvReac Type Severity Reaction Status Date / Time
lisinopril Allergy cough Verified 04/25/25 14:37
�Medication �Instructions �Recorded
Zofran 4 mg PO TID PRN nausea 04/05/25
acetaminophen 650 mg 1,300 mg PO Q8H PRN headaches 04/05/25
tablet,extended release
aluminum-mag hydroxide-simethicone 30 ml PO TID nausea 04/05/25
200 mg-200 mg-20 mg/5 mL oral susp
atorvastatin 10 mg tablet 10 mg PO QPM 04/05/25
buprenorphine 5 mcg/hour weekly 1 patch transdermal Q7D 04/05/25
transdermal patch
levothyroxine 200 mcg tablet 200 mcg PO DAILY 04/05/25
losartan 50 mg tablet 75 mg PO DAILY 04/05/25
metoclopramide HCl 10 mg tablet 10 mg PO TID PRN nausea 04/05/25
(Reglan)
metoprolol succinate 100 mg 100 mg PO DAILY 04/05/25
tablet,extended release 24 hr
omeprazole 40 mg capsule,delayed 40 mg PO DAILY #14 caps 04/05/25
release
pantoprazole 40 mg tablet,delayed 40 mg PO TID PRN nausea 04/05/25
release
polyethylene glycol 3350 17 4 g PO DAILY PRN constipation 04/05/25
gram/dose oral powder (Miralax)
rivaroxaban 20 mg tablet (Xarelto) 20 mg PO QPM 04/05/25
scopolamine base 1 mg over 3 days 1 patch transdermal Q3D 04/05/25
transdermal patch
senna 2 tab PO TID PRN constipation 04/05/25
Review of Systems
-
History Source: Patient and Family
Constitutional: Reports Weight Loss ( 100 lbs 1 year, 40 lbs since January )
EENT: Reports No Symptoms
Respiratory: Reports No Symptoms
Cardiac: Reports No Symptoms
Abdomen/GI: Reports Abdominal Pain, Nausea, Vomiting and Constipated (on senna)
: Reports Other (overactive bladder )
Musculoskeletal: Reports No Symptoms
Skin: Reports No Symptoms
Neurological: Reports Weakness
Endocrine: Reports No Symptoms
Hematologic/Lymphatic: Reports No Symptoms
Vital Signs
Temp Pulse Resp BP Pulse Ox
97.6 F 72 18 150/81 96
04/27/25 08:10 04/27/25 08:10 04/27/25 08:10 04/27/25 08:10 04/27/25 08:10
Physical Exam
Exam
General: Other (sleeping but arousable )
HEENT: Normocephalic and Anicteric
Respiratory: Clear
Cardiac: Regular Rhythm
GI: Soft, Non Tender and Non Distended
Musculoskeletal: No Clubbing and No Cyanosis
Skin: Warm and Dry
Neuro: Other (awakens to voice )
Psych: Calm
Results
WBC 5.8 10^3/uL (4.8-10.8) 04/27/25 07:11
Hgb 12.9 g/dL (12.0-16.0) 04/27/25 07:11
Hct 38.3 % (37.0-47.0) 04/27/25 07:11
MCV 88.5 fL (81.0-99.0) 04/27/25 07:11
Plt Count 136 10^3/uL (130-400) 04/27/25 07:11
Absolute Neuts (auto) 3.7 10^3/uL (1.4-6.5) 04/27/25 07:11
Sodium 140 mmol/L (135-145) 04/27/25 07:11
Potassium 3.5 mmol/L (3.5-5.1) 04/27/25 07:11
Chloride 107 mmol/L (98-107) 04/27/25 07:11
Carbon Dioxide 29 mmol/L (22-30) 04/27/25 07:11
BUN 3 mg/dl (7-17) L 04/27/25 07:11
Creatinine 0.6 mg/dL (0.6-1.0) 04/27/25 07:11
Calcium 9.2 mg/dl (8.4-10.2) 04/27/25 07:11
Total Bilirubin 1.4 mg/dl (0.2-1.3) H 04/27/25 07:11
AST 17 U/L (14-36) 04/27/25 07:11
ALT 12 U/L (0-35) 04/27/25 07:11
Alkaline Phosphatase 58 U/L (38-126) 04/27/25 07:11
Lipase 50 U/L (23-300) 04/26/25 06:52
Diagnostic Image Results:
01/06/25- US abdomen GB sludge without acute cholecystitis, CBD 0.9 cm
01/06/25- Ct A/p- no acute abnormality
01/31/25- Ct A/p with IV contrast- no acute pathology, mild b/l pulm consolidation, atelectasis vs PNA, multiple uterine leiomomas and simple left adnexal cystic lesion,
01/31/25- US abdomen limited- no cholecystitis, acute cholecystitis, or biliary obstruction, HM
02/28/25- HCT- no acute findingssmall left maxillary sinus cyst
02/28/25- CT angio- no acute aortic injury, no mesenteric ischemia
04/27/25 CT Abd/pelvis W Iv Cont
1. No acute findings within the abdomen or pelvis. Surgically absent appendix.
2. Enlarged, lobulated uterus, likely secondary to the presence of underlying fibroids. 3.6 cm low-attenuation left adnexal cyst. Given postmenopausal age, consider a follow-up ultrasound in one year to document stability.
3. Right hip prosthesis. Severe left hip osteoarthritis.
4. Additional findings above.
Prior GI Procedures:
EGD: 03/16/25- EGD normal esophagus, pssible <1 cm HH gastroesophageal flap valve classified as Hill grade II, fold presents opens with respiration, erythematous mucosa in gastric body and atnrum, normal duodenum
Colonoscopy: 2017- Dr. Virgen
Assessment / Plan
-
yo with hx afib on Xarelto with prior ablation, HTN, hyperlipidemia, hypothyroidism,overactive bladder, factor V Leiden deficiency, MTHRF mutation, DVT, SCARLETT, arthritis obesity, depression, prior appe, prior hip and knee replacement with wt loss
over last years as due for joint replacement. She had lost about 60 lb then in January began with onset of nausea, vomiting, wt loss with inability to eat and further 40 lbs wt loss since that time. Family recall eating pizza prior to onset and only
medication change was adding Bupropion patch prior to onset. She has been to multiple inpatient and outpatient providers with continued symptoms since mid January including [facility], [facility], [facility] at [facility] and [facility] with multiple tests
completed but still with symptoms. In review with patient she is feeling better but per family now presents as she was lethargic and not eating for 8 days prior to admission. she does admits to stopping Bupropion patch 2 weeks ago and additional
opioid also discontinued in April. Last evaluation was with [facility] and Questran was added with no improvement. Extensive imaging and EGD as noted. She also was on prison Xarelto then recently went to Coumadin and switch back with cost issue.
At this time she admits to continued nausea and wt loss. She admits to some vomiting not daily. Variable amount. Larger amount prompting [facility] admission but sometimes small volumes. She admits to abdominal pain and feeling of stomach ache.
She had chronic constipation on senna and denies diarrhea or rectal bleeding. . TSH <0.02, T4 14, CBC stable, chemistry mild glucose elevation, bili 1.9, AST 20, ALT 14, alkh phos 84. albumin 4.4 on admission then drop to 3.4.
-nausea
-wt loss 100 lb last year 40 lbs since January
-recent stop of chronic pain medications
other med problems:
-hx afib on Xarelto with prior ablation
-HTN
-hyperlipidemia
-hypothyroidism
-overactive bladder
factor V Leiden deficiency, MTHRF mutation
- DVT
- SCARLETT,
-arthritis
- obesity
- depression
- prior appe
-prior hip and knee replacement
PLAN:
etiology of nausea and wt loss related to bupropion patch stopped 2 weeks ago, gallbladder related with recent large volume wt loss vs other
extensive testing reviewed but was unable to access all prior GI consult evaluations done at [facility]
cont supportive care with IVF
close monitoring of intakes-- noted 100% recorded last PM
reviewed with nursing for accurate intakes
will review with Dr. Hwang for further work up
remains on Xarelto
cont off narcotics
cont senna BID and miralax PRN for bowel regiment with stool yesterday
Zofran as needed
-
-
Thank you for consultation and allowing me to participate in the patient's care. Please call the instructional technologist GI physician during the after hours with any questions or concerns.
--- NOTE | 2025-04-27 12:17 | CM ---
CM reviewed chart, patient seen bedside with , report no needs to CM at this time. Per PT, no skilled need. GI consulted. CM will continue to follow for all discharge planning needs.
Plan; home no needs anticipated
[2025-04-27] MEDS: CITROMA 300 ML PO (14:26)
[2025-04-27 15:00] VITALS: BP 171/88
--- NOTE | 2025-04-27 15:09 | W.PN.HOSP.TC ---
Today's Communication/Plan
-
IVF
encourage diet
Hold levothyroxine for elevated T4
Appreciate GI eval
Bowel regimen
Assessment / Plan
Assessment / Plan
IMPRESSION:
64F w/ paroxysmal atrial fibrillation, hypothyroid, hyperlipidemia, hypertension p/w essentially failure to thrive in the setting of worsening appetite over the last few weeks and significantly decreased appetite over the last 7 days with no p.o.
intake, sleepiness lethargy and dehydration. She has had extensive workup which has included an EGD showing no abnormalities, workup for ischemic bowel which was negative, and no evidence for gastroparesis, malabsorption or pancreatic
insufficiency.
PLAN:
Loss of appetite -unclear etiology with negative workup as stated above. She is however dehydrated and hypovolemic at this time. Her daughter has also noticed that she has had some cognitive slowing, some shakes, and episode of light flashes.
Per GI note could be related to stopping her bupropion patch versus related to her gallbladder
renew IV fluids with dextrose
-Continue antiemetics and PPI
-Protein calorie malnutrition labs
-GI consultation appreciated
-Consider initiation of mirtazapine
-PT OT
Continue to encourage p.o. intake
Atrial fibrillation -permanent A-fib, rate controlled
-Continue oral Xarelto and toprol XL
Hyperlipidemia
-Continue atorvastatin
Hypothyroid
low TSH <0.02
Elevated T4
Hold levothyroxine for now
DVT prophylaxis�on Xarelto
CODE STATUS�full code
Anticipated Discharge: 24 - 48 hours
Subjective/Interval History
-
Date of Service: April 27, 2025
Patient still feeling poorly, nauseous. Per RN note patient ate 100% of her lunch.
Objective Data
-
Labs:
Laboratory Results
04/27/25
07:11
WBC 5.8
Hgb 12.9
Hct 38.3
Plt Count 136
Sodium 140
Potassium 3.5
Chloride 107
Carbon Dioxide 29
BUN 3 L
Creatinine 0.6
Glucose 105 H
Calcium 9.2
Total Bilirubin 1.4 H
AST 17
ALT 12
Alkaline Phosphatase 58
Vital Signs:
Vital Signs
Temp Pulse Resp BP Pulse Ox
97.6 F 72 18 150/81 96
04/27/25 08:10 04/27/25 08:10 04/27/25 08:10 04/27/25 08:10 04/27/25 08:10
I&O
04/26/25 04/27/25 04/28/25
06:59 06:59 06:59
Intake Total 2400 / 2400
Balance 2400 / 2400
Review of Systems
-
All other systems: Reviewed and negative
Physical Exam
-
General: No Apparent Distress
HEENT: Moist Mucous Membranes, Anicteric and PERRLA
Respiratory: Non Labored Respirations
GI: Nondistended
Musculoskeletal: No Edema
Skin: Warm and Dry; Negative Rash, Ulcers or Lesions
Neuro: Awake and AO x 3
Psych: Calm
Data Reviewed
-
Labs: Labs Reviewed by me
[2025-04-27] MEDS: XARELTO 20 MG PO (17:41)
[2025-04-27] MEDS: LIPITOR 10 MG PO (17:42)
[2025-04-27] MEDS: XANAX 0.25 MG PO (19:17)
[2025-04-27] MEDS: NSS (PRESERVATIVE FREE) 10 ML IV (20:00)
[2025-04-27] MEDS: PROTONIX IV 40 MG IV (20:00)
[2025-04-27] MEDS: REMERON 15 MG PO (21:08)
[2025-04-27 23:26] VITALS: BP 116/88
[2025-04-28 06:24] LABS: Hematocrit 39.9 % (37.0-47.0); Hemoglobin 13.3 g/dL (12.0-16.0); Mean Corp Hgb Conc. 33.3 g/dL (33.0-37.0); Mean Corpuscular Volume 88.7 fL (81.0-99.0); Nucleated Red Blood Cells % 0 %; Platelet Count 139 10^3/uL (130-400); Red Cell Dist. Width 13.8 % (11.5-14.5)
[2025-04-28 06:45] LABS: ALT (SGPT) 14 U/L (0-35); AST (SGOT) 18 U/L (14-36); Albumin 3.3 g/dl (3.5-5.0); Alkaline Phosphatase 56 U/L (38-126); Blood Urea Nitrogen 2 mg/dl (7-17); Calcium 9.4 mg/dl (8.4-10.2); Carbon Dioxide 29 mmol/L (22-30); Chloride 109 mmol/L (98-107); Estimated Creatinine Clearance > 125 ml/min; Glucose 91 mg/dl (70-99); Potassium 3.5 mmol/L (3.5-5.1); Sodium 143 mmol/L (135-145); Total Protein 5.8 g/dl (6.3-8.2); eGFR > 60.00
--- NOTE | 2025-04-28 09:34 | W.PN.HOSP.TC ---
Today's Communication/Plan
-
gastric emptying study
Assessment / Plan
Assessment / Plan
IMPRESSION:
64F w/ paroxysmal atrial fibrillation, hypothyroid, hyperlipidemia, hypertension p/w essentially failure to thrive in the setting of worsening appetite over the last few weeks and significantly decreased appetite over the last 7 days with no p.o.
intake, sleepiness lethargy and dehydration. She has had extensive workup which has included an EGD showing no abnormalities, workup for ischemic bowel which was negative, and no evidence for gastroparesis, malabsorption or pancreatic
insufficiency.
PLAN:
Loss of appetite -unclear etiology with negative workup as stated above. She is however dehydrated and hypovolemic at this time. Her daughter has also noticed that she has had some cognitive slowing, some shakes, and episode of light flashes.
has had extensive outpt w/u
renew IV fluids with dextrose
-Continue antiemetics and PPI
-Protein calorie malnutrition labs
-GI consultation appreciated, gastric emptying study today, f/u results
-Consider initiation of mirtazapine
-PT OT
Continue to encourage p.o. intake
Atrial fibrillation -permanent A-fib, rate controlled
-Continue oral Xarelto and toprol XL
Hyperlipidemia
-Continue atorvastatin
Hypothyroid
low TSH <0.02
Elevated T4
Hold levothyroxine for now
recheck tsh soon to see if improving
DVT prophylaxis�on Xarelto
CODE STATUS�full code
Anticipated Discharge: 24 - 48 hours
Subjective/Interval History
-
Date of Service: April 28, 2025
Nauseous, didn't eat dinner. Ate the eggs for the gastric empyting study. at bedside.
Objective Data
-
Labs:
Laboratory Results
04/28/25
05:31
WBC 6.4
Hgb 13.3
Hct 39.9
Plt Count 139
Sodium 143
Potassium 3.5
Chloride 109 H
Carbon Dioxide 29
BUN 2 L
Creatinine 0.5 L
Glucose 91
Calcium 9.4
Total Bilirubin 1.3
AST 18
ALT 14
Alkaline Phosphatase 56
Vital Signs:
Vital Signs
Temp Pulse Resp BP Pulse Ox
98.3 F 75 20 116/88 95
04/27/25 23:26 04/27/25 23:26 04/27/25 23:26 04/27/25 23:26 04/27/25 23:26
I&O
04/27/25 04/28/25 04/29/25
06:59 06:59 06:59
Intake Total 2400 / 2400 240 / 240
Balance 2400 / 2400 240 / 240
Review of Systems
-
All other systems: Reviewed and negative
Physical Exam
-
General: No Apparent Distress
HEENT: Moist Mucous Membranes, Anicteric and PERRLA
Respiratory: Non Labored Respirations
GI: Nondistended
Musculoskeletal: No Edema
Skin: Warm and Dry; Negative Rash, Ulcers or Lesions
Neuro: Awake and AO x 3
Psych: Calm
Data Reviewed
-
Labs: Labs Reviewed by me
[2025-04-28 11:00] VITALS: BP 160/78
--- NOTE | 2025-04-28 11:33 | W.PN.GI.CBS2 ---
Today's Communication / Plan
-
Continue remeron for nausea
Continue senna BID and miralax prn
Await GES results. She was on reglan in the past
Monitor PO intake
Consider HIDA if all above negative since sx started after eating out in January
Assessment / Plan
-
yo with hx afib on Xarelto with prior ablation, HTN, hyperlipidemia, hypothyroidism,overactive bladder, factor V Leiden deficiency, MTHRF mutation, DVT, SCARLETT, arthritis obesity, depression, prior appe, prior hip and knee replacement with wt loss
over last years as due for joint replacement. She had lost about 60 lb then in January began with onset of nausea, vomiting, wt loss with inability to eat and further 40 lbs wt loss since that time. Family recall eating pizza prior to onset and only
medication change was adding Bupropion patch prior to onset. She has been to multiple inpatient and outpatient providers with continued symptoms since mid January including [facility], [email or web address]], [facility] at [place] and [facility] with multiple tests
completed but still with symptoms. In review with patient she is feeling better but per family now presents as she was lethargic and not eating for 8 days prior to admission. she does admits to stopping Bupropion patch 2 weeks ago and additional
opioid also discontinued in April. Last evaluation was with [facility] and Questran was added with no improvement. Extensive imaging and EGD as noted. She also was on local [employer] Xarelto then recently went to Coumadin and switch back with cost issue.
At this time she admits to continued nausea and wt loss. She admits to some vomiting not daily. Variable amount. Larger amount prompting [facility] admission but sometimes small volumes. She admits to abdominal pain and feeling of stomach ache.
She had chronic constipation on senna and denies diarrhea or rectal bleeding. . TSH <0.02, T4 14, CBC stable, chemistry mild glucose elevation, bili 1.9, AST 20, ALT 14, alkh phos 84. albumin 4.4 on admission then drop to 3.4.
Impression:
-nausea
-wt loss 100 lb last year 40 lbs since January
-recent stop of chronic pain medications
other med problems:
-hx afib on Xarelto with prior ablation
-HTN
-hyperlipidemia
-hypothyroidism
-overactive bladder
factor V Leiden deficiency, MTHRF mutation
- DVT
- SCARLETT,
-arthritis
- obesity
- depression
- prior appe
-prior hip and knee replacement
Subjective
Subjective
Date of Service: April 28, 2025
Passing BMs with Mg citrate. Feeling slightly better. Not much appetite
Objective
Data Reviewed
Laboratory Data:
Laboratory Results
04/28/25 05:31
04/28/25 05:31
Laboratory Results
Magnesium 1.6 mg/dl (1.6-2.3) 04/26/25 06:52
Total Bilirubin 1.3 mg/dl (0.2-1.3) 04/28/25 05:31
AST 18 U/L (14-36) 04/28/25 05:31
ALT 14 U/L (0-35) 04/28/25 05:31
Alkaline Phosphatase 56 U/L (38-126) 04/28/25 05:31
Lipase 50 U/L (23-300) 04/26/25 06:52
Vital Signs and I&O:
Vital Signs
Temp Pulse Resp BP Pulse Ox
98.3 F 75 20 116/88 95
04/27/25 23:26 04/27/25 23:26 04/27/25 23:26 04/27/25 23:26 04/27/25 23:26
I&O
04/27/25 04/28/25 04/29/25
06:59 06:59 06:59
Intake Total 2400 / 2400 240 / 240
Balance 2400 / 2400 240 / 240
Physical Exam
Physical Exam
GI: Soft, Non Distended and Non Tender
[2025-04-28] MEDS: PROTONIX IV 40 MG IV ×2 (11:42→20:28)
[2025-04-28] MEDS: NSS (PRESERVATIVE FREE) 10 ML IV ×2 (11:42→20:28)
[2025-04-28] MEDS: SENOKOT-S PO (13:17)
[2025-04-28] MEDS: DITROPAN PO (13:17)
[2025-04-28] MEDS: COZAAR 100 MG PO (13:46)
[2025-04-28] MEDS: ZOLOFT 100 MG PO (13:47)
[2025-04-28] MEDS: TYLENOL 650 MG PO ×2 (13:47→20:39)
[2025-04-28] MEDS: TOPROL XL 100 MG PO (13:48)
--- NOTE | 2025-04-28 13:54 | CM ---
CM reviewed chart, received call from [facility], updated CM that patient is current with services for nursing. Will place referral in [facility]. GI following. CM will continue to follow for all discharge planning needs.
Plan; return home with [facility]
[2025-04-28] MEDS: ZOFRAN 4 MG IV (14:06)
[2025-04-28 15:40] VITALS: BP 166/81
[2025-04-28] MEDS: XARELTO 20 MG PO (18:22)
[2025-04-28] MEDS: LIPITOR 10 MG PO (18:22)
[2025-04-28] MEDS: DITROPAN 5 MG PO (20:27)
[2025-04-28] MEDS: SENOKOT-S 1 TABLET PO (20:28)
[2025-04-28] MEDS: XANAX 0.25 MG PO (20:28)
[2025-04-28] MEDS: REMERON 15 MG PO (22:08)
[2025-04-28 23:43] VITALS: BP 161/84
[2025-04-29 07:40] VITALS: BP 164/88
[2025-04-29 08:55] LABS: Hematocrit 40.2 % (37.0-47.0); Hemoglobin 13.2 g/dL (12.0-16.0); Mean Corp Hgb Conc. 32.8 g/dL (33.0-37.0); Mean Corpuscular Volume 89.3 fL (81.0-99.0); Nucleated Red Blood Cells % 0 %; Platelet Count 131 10^3/uL (130-400); Red Cell Dist. Width 14.0 % (11.5-14.5)
[2025-04-29 09:10] LABS: ALT (SGPT) 15 U/L (0-35); AST (SGOT) 19 U/L (14-36); Albumin 3.2 g/dl (3.5-5.0); Alkaline Phosphatase 62 U/L (38-126); Blood Urea Nitrogen 6 mg/dl (7-17); Calcium 9.0 mg/dl (8.4-10.2); Carbon Dioxide 29 mmol/L (22-30); Chloride 108 mmol/L (98-107); Estimated Creatinine Clearance > 125 ml/min; Glucose 88 mg/dl (70-99); Potassium 3.4 mmol/L (3.5-5.1); Sodium 142 mmol/L (135-145); Total Protein 5.5 g/dl (6.3-8.2); eGFR > 60.00
--- NOTE | 2025-04-29 09:32 | W.PN.HOSP.TC ---
Today's Communication/Plan
-
Severe gastroparesis, information relayed to patient and . Sick small meals, defer other management meds etc. to GI
Assessment / Plan
Assessment / Plan
IMPRESSION:
64F w/ paroxysmal atrial fibrillation, hypothyroid, hyperlipidemia, hypertension p/w essentially failure to thrive in the setting of worsening appetite over the last few weeks and significantly decreased appetite over the last 7 days with no p.o.
intake, sleepiness lethargy and dehydration. She has had extensive workup which has included an EGD showing no abnormalities, workup for ischemic bowel which was negative, and no evidence for gastroparesis, malabsorption or pancreatic
insufficiency.
Found to have severe gastroparesis.
Severe gastroparesis
has had extensive outpt w/u
NM gastric emptying studying performed 04/29 and found to have severe gastroparesis
GI consulted anticipate recs for gastroparesis, stimulator, Reglan etc.
6 small meals
-s/p IVF. Continue antiemetics and PPI
-Protein calorie malnutrition labs
-PT OT
Continue to encourage p.o. intake
Atrial fibrillation
-permanent A-fib, rate controlled
-Continue oral Xarelto and toprol XL
Hyperlipidemia
-Continue atorvastatin
Hypothyroid
low TSH <0.02
Elevated T4
Hold levothyroxine for now
recheck tsh in a.m. to see if improving
DVT prophylaxis�on Xarelto
CODE STATUS�full code
Anticipated Discharge: 24 - 48 hours
Subjective/Interval History
-
Date of Service: April 29, 2025
Pt feeling ok today ate some breakfast, at bedside
Objective Data
-
Labs:
Laboratory Results
04/29/25
08:10
WBC 4.6 L
Hgb 13.2
Hct 40.2
Plt Count 131
Sodium 142
Potassium 3.4 L
Chloride 108 H
Carbon Dioxide 29
BUN 6 L
Creatinine 0.5 L
Glucose 88
Calcium 9.0
Total Bilirubin 1.2
AST 19
ALT 15
Alkaline Phosphatase 62
Vital Signs:
Vital Signs
Temp Pulse Resp BP Pulse Ox
97.7 F 65 17 164/88 97
04/29/25 07:40 04/29/25 07:40 04/29/25 07:40 04/29/25 07:40 04/29/25 07:40
I&O
04/28/25 04/29/25 04/30/25
06:59 06:59 06:59
Intake Total 240 / 240 480 / 480
Balance 240 / 240 480 / 480
Review of Systems
-
All other systems: Reviewed and negative
Physical Exam
-
General: No Apparent Distress
HEENT: Moist Mucous Membranes, Anicteric and PERRLA
Respiratory: Non Labored Respirations
GI: Soft, Nontender, Nondistended and Normal Bowel Sounds
Musculoskeletal: No Edema
Skin: Warm and Dry; Negative Rash, Ulcers or Lesions
Neuro: Awake and AO x 3
Psych: Calm
Data Reviewed
-
Medical Tests (Nuc Med, Echo etc): Report Reviewed by me, Discussed with Patient and Discussed with Family
Labs: Labs Reviewed by me, Discussed with Patient and Discussed with Family
[2025-04-29] MEDS: SENOKOT-S 1 TABLET PO ×2 (10:35→21:05)
[2025-04-29] MEDS: DITROPAN 5 MG PO ×2 (10:35→21:04)
[2025-04-29] MEDS: TOPROL XL 100 MG PO (10:35)
[2025-04-29] MEDS: NSS (PRESERVATIVE FREE) 10 ML IV ×2 (10:35→21:04)
[2025-04-29] MEDS: COZAAR 100 MG PO (10:35)
[2025-04-29] MEDS: PROTONIX IV 40 MG IV ×2 (10:35→21:05)
[2025-04-29] MEDS: ZOLOFT 100 MG PO (10:35)
[2025-04-29] MEDS: PREPARATION H MAX STRENGTH PAIN RELIEF CREAM 1 APPLIC RECTAL (13:45)
[2025-04-29] MEDS: TYLENOL 650 MG PO (13:48)
[2025-04-29] MEDS: KCL 40 MEQ PO (13:49)
--- NOTE | 2025-04-29 14:12 | W.PN.GI.CBS2 ---
Today's Communication / Plan
-
Had long discussion with and daughter regarding gastroparesis diagnosis
Sx began suddenly in January after eating at [employer]. Perhaps she had a viral gastroenteritis that precipitated it
I discussed short term reglan but she had tremors after using it in the past. Unclear if she was previously dx'd with gastroparesis or it was used empirically
We decided to try erythromycin QID, but it interacts with xarelto. I will check with Hospitalist team if ok to use with adjustment of xarelto
Also recommended small frequent meals, avoid high fat/high fiber
She wishes to f/u with Dr Hwang after d/c for her GI issues. D/C once PO intake adequate and stable
Assessment / Plan
-
yo with hx afib on Xarelto with prior ablation, HTN, hyperlipidemia, hypothyroidism,overactive bladder, factor V Leiden deficiency, MTHRF mutation, DVT, SCARLETT, arthritis obesity, depression, prior appe, prior hip and knee replacement with wt loss
over last years as due for joint replacement. She had lost about 60 lb then in January began with onset of nausea, vomiting, wt loss with inability to eat and further 40 lbs wt loss since that time. Family recall eating pizza prior to onset and only
medication change was adding Bupropion patch prior to onset. She has been to multiple inpatient and outpatient providers with continued symptoms since mid January including [place], [facility], [facility] at [place] and [facility] with multiple tests
completed but still with symptoms. In review with patient she is feeling better but per family now presents as she was lethargic and not eating for 8 days prior to admission. she does admits to stopping Bupropion patch 2 weeks ago and additional
opioid also discontinued in April. Last evaluation was with [facility] and Questran was added with no improvement. Extensive imaging and EGD as noted. She also was on retirement Xarelto then recently went to Coumadin and switch back with cost issue.
At this time she admits to continued nausea and wt loss. She admits to some vomiting not daily. Variable amount. Larger amount prompting [facility] admission but sometimes small volumes. She admits to abdominal pain and feeling of stomach ache.
She had chronic constipation on senna and denies diarrhea or rectal bleeding. . TSH <0.02, T4 14, CBC stable, chemistry mild glucose elevation, bili 1.9, AST 20, ALT 14, alkh phos 84. albumin 4.4 on admission then drop to 3.4.
Impression:
-Severe gastroparesis on GES
-nausea
-wt loss 100 lb last year 40 lbs since January
-recent stop of chronic pain medications
other med problems:
-hx afib on Xarelto with prior ablation
-HTN
-hyperlipidemia
-hypothyroidism
-overactive bladder
factor V Leiden deficiency, MTHRF mutation
- DVT
- SCARLETT,
-arthritis
- obesity
- depression
- prior appe
-prior hip and knee replacement
Subjective
Subjective
Date of Service: April 29, 2025
Pt trying POs. Has some abd discomfort. No BM today
Objective
Data Reviewed
Laboratory Data:
Laboratory Results
04/29/25 08:10
04/29/25 08:10
Laboratory Results
Magnesium 1.6 mg/dl (1.6-2.3) 04/26/25 06:52
Total Bilirubin 1.2 mg/dl (0.2-1.3) 04/29/25 08:10
AST 19 U/L (14-36) 04/29/25 08:10
ALT 15 U/L (0-35) 04/29/25 08:10
Alkaline Phosphatase 62 U/L (38-126) 04/29/25 08:10
Lipase 50 U/L (23-300) 04/26/25 06:52
Vital Signs and I&O:
Vital Signs
Temp Pulse Resp BP Pulse Ox
97.7 F 65 17 164/88 97
04/29/25 07:40 04/29/25 07:40 04/29/25 07:40 04/29/25 07:40 04/29/25 07:40
I&O
04/28/25 04/29/25 04/30/25
06:59 06:59 06:59
Intake Total 240 / 240 480 / 480
Balance 240 / 240 480 / 480
Physical Exam
Physical Exam
GI: Soft and Non Distended
[2025-04-29 15:32] VITALS: BP 146/79
[2025-04-29] MEDS: MAALOX 30 ML PO (15:47)
[2025-04-29] MEDS: XARELTO 20 MG PO (18:02)
[2025-04-29] MEDS: LIPITOR 10 MG PO (18:02)
[2025-04-29] MEDS: XARELTO PO (18:13)
[2025-04-29] MEDS: ERYTAB 125 MG PO (21:18)
[2025-04-29] MEDS: XANAX 0.25 MG PO (21:35)
[2025-04-29] MEDS: REMERON 15 MG PO (21:35)
[2025-04-29 23:12] VITALS: BP 156/83
[2025-04-30 08:11] VITALS: BP 182/97
[2025-04-30 08:27] VITALS: BP 172/95; BP 179/95; BP 195/114; PULSE 65; PULSE 75; PULSE 76
[2025-04-30 08:43] LABS: Hematocrit 40.4 % (37.0-47.0); Hemoglobin 13.4 g/dL (12.0-16.0); Mean Corp Hgb Conc. 33.2 g/dL (33.0-37.0); Mean Corpuscular Volume 90.0 fL (81.0-99.0); Platelet Count 136 10^3/uL (130-400); Red Cell Dist. Width 13.9 % (11.5-14.5)
--- NOTE | 2025-04-30 08:45 | W.PN.HOSP.TC ---
Today's Communication/Plan
-
started erythromycin, encourage po. plan for dc home when adequate oral intake and control of n/v
repeat tsh still elevated will hold levothyroxine ondc
Assessment / Plan
Assessment / Plan
IMPRESSION:
64F w/ paroxysmal atrial fibrillation, hypothyroid, hyperlipidemia, hypertension p/w essentially failure to thrive in the setting of worsening appetite over the last few weeks and significantly decreased appetite over the last 7 days with no p.o.
intake, sleepiness lethargy and dehydration. She has had extensive workup which has included an EGD showing no abnormalities, workup for ischemic bowel which was negative, and no evidence for gastroparesis, malabsorption or pancreatic
insufficiency.
Now found to have severe gastroparesis.
Severe gastroparesis
has had extensive outpt w/u
NM gastric emptying studying performed 04/29 and found to have severe gastroparesis
GI consulted, d/w Dr. Horner, starting erythromycin
6 small meals
-s/p IVF. Continue antiemetics and PPI
-Protein calorie malnutrition labs
-PT OT
Continue to encourage p.o. intake. Will dc when having adequate po and able to control n/v with po meds
Atrial fibrillation
-permanent A-fib, rate controlled
-Continue oral Xarelto and toprol XL
d/w pharmacy and dose adjusted xarelto now that pt on erythromycin
Hyperlipidemia
-Continue atorvastatin
Hypothyroid
low TSH <0.02
Elevated T4
Hold levothyroxine for now
rechecked tsh still low will have pt cont to hold levothyroxine on dc
DVT prophylaxis�on Xarelto
CODE STATUS�full code
Anticipated Discharge: Within 24 hours
Subjective/Interval History
-
Date of Service: April 30, 2025
Patient feeling well, nausea is less, abdominal pain is improved. Daughter at bedside. All questions answered as able
Objective Data
-
Labs:
Laboratory Results
04/30/25
08:01
WBC 5.2
Hgb 13.4
Hct 40.4
Plt Count 136
Sodium Pending
Potassium Pending
Chloride Pending
Carbon Dioxide Pending
BUN Pending
Creatinine Pending
Glucose Pending
Calcium Pending
Vital Signs:
Vital Signs
Temp Pulse Resp BP Pulse Ox
98.3 F 65 20 182/97 96
04/30/25 08:11 04/30/25 08:11 04/30/25 08:11 04/30/25 08:11 04/30/25 08:11
I&O
04/29/25 04/30/25 05/01/25
06:59 06:59 06:59
Intake Total 480 / 480 580 / 580
Balance 480 / 480 580 / 580
Review of Systems
-
All other systems: Reviewed and negative
Physical Exam
-
General: No Apparent Distress
HEENT: Moist Mucous Membranes, Anicteric and PERRLA
Respiratory: Clear to Auscultation and Non Labored Respirations; Negative Wheezes, Rales or Rhonchi
Cardiac: Regular Rhythm; Negative Murmur
GI: Soft, Nontender, Nondistended and Normal Bowel Sounds
Musculoskeletal: No Edema
Skin: Warm and Dry; Negative Rash, Ulcers or Lesions
Neuro: Awake and AO x 3
Psych: Calm
Data Reviewed
-
Medical Tests (Nuc Med, Echo etc): Report Reviewed by me, Discussed with Patient and Discussed with Family
Labs: Labs Reviewed by me, Discussed with Patient and Discussed with Family
[2025-04-30 09:11] LABS: Blood Urea Nitrogen 9 mg/dl (7-17); Calcium 8.9 mg/dl (8.4-10.2); Carbon Dioxide 31 mmol/L (22-30); Chloride 106 mmol/L (98-107); Estimated Creatinine Clearance > 125 ml/min; Glucose 90 mg/dl (70-99); Potassium 4.3 mmol/L (3.5-5.1); Sodium 141 mmol/L (135-145); eGFR > 60.00
--- NOTE | 2025-04-30 09:46 | W.PN.GI.CBS2 ---
Today's Communication / Plan
-
Pt started on erythromycin 125mg TID with meals and xarelto dose was adjusted due to interaction
Continue to see if this allows her to tolerate small frequent meals (5 small meals throughout day)
Daughter was concerned with ability to tolerate POs after d/c.
If not working, reconsider reglan short term
If working, d/c with OP f/u. Pt/daughter also inquired about Nutrition consult, which can be done OP
Assessment / Plan
-
yo with hx afib on Xarelto with prior ablation, HTN, hyperlipidemia, hypothyroidism,overactive bladder, factor V Leiden deficiency, MTHRF mutation, DVT, SCARLETT, arthritis obesity, depression, prior appe, prior hip and knee replacement with wt loss
over last years as due for joint replacement. She had lost about 60 lb then in January began with onset of nausea, vomiting, wt loss with inability to eat and further 40 lbs wt loss since that time. Family recall eating pizza prior to onset and only
medication change was adding Bupropion patch prior to onset. She has been to multiple inpatient and outpatient providers with continued symptoms since mid January including [facility], [facility], [facility] at [place] and [facility] with multiple tests
completed but still with symptoms. In review with patient she is feeling better but per family now presents as she was lethargic and not eating for 8 days prior to admission. she does admits to stopping Bupropion patch 2 weeks ago and additional
opioid also discontinued in April. Last evaluation was with [facility] and Questran was added with no improvement. Extensive imaging and EGD as noted. 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
At this time she admits to continued nausea and wt loss. She admits to some vomiting not daily. Variable amount. Larger amount prompting [facility] admission but sometimes small volumes. She admits to abdominal pain and feeling of stomach ache.
She had chronic constipation on senna and denies diarrhea or rectal bleeding. . TSH <0.02, T4 14, CBC stable, chemistry mild glucose elevation, bili 1.9, AST 20, ALT 14, alkh phos 84. albumin 4.4 on admission then drop to 3.4.
Impression:
-Severe gastroparesis on GES
-nausea
-wt loss 100 lb last year 40 lbs since January
-recent stop of chronic pain medications
other med problems:
-hx afib on Xarelto with prior ablation
-HTN
-hyperlipidemia
-hypothyroidism
-overactive bladder
factor V Leiden deficiency, MTHRF mutation
- DVT
- SCARLETT,
-arthritis
- obesity
- depression
- prior appe
-prior hip and knee replacement
Subjective
Subjective
Date of Service: April 30, 2025
Pt reports less nausea this am. Tolerated dinner last night
Objective
Data Reviewed
Laboratory Data:
Laboratory Results
04/30/25 08:01
04/30/25 08:01
Laboratory Results
Magnesium 1.6 mg/dl (1.6-2.3) 04/26/25 06:52
Total Bilirubin 1.2 mg/dl (0.2-1.3) 04/29/25 08:10
AST 19 U/L (14-36) 04/29/25 08:10
ALT 15 U/L (0-35) 04/29/25 08:10
Alkaline Phosphatase 62 U/L (38-126) 04/29/25 08:10
Lipase 50 U/L (23-300) 04/26/25 06:52
Vital Signs and I&O:
Vital Signs
Temp Pulse Resp BP Pulse Ox
98.3 F 65 20 182/97 96
04/30/25 08:11 04/30/25 08:11 04/30/25 08:11 04/30/25 08:11 04/30/25 08:11
I&O
04/29/25 04/30/25 05/01/25
06:59 06:59 06:59
Intake Total 480 / 480 580 / 580
Balance 480 / 480 580 / 580
Physical Exam
Physical Exam
GI: Soft, Non Distended and Non Tender
[2025-04-30] MEDS: ZOLOFT 100 MG PO (10:13)
[2025-04-30] MEDS: COZAAR 100 MG PO (10:13)
[2025-04-30] MEDS: TOPROL XL 100 MG PO (10:13)
[2025-04-30] MEDS: TYLENOL 650 MG PO (10:13)
[2025-04-30] MEDS: DITROPAN 5 MG PO ×2 (10:13→21:17)
[2025-04-30] MEDS: SENOKOT-S 1 TABLET PO ×2 (10:13→21:17)
[2025-04-30] MEDS: ERYTAB 125 MG PO ×3 (10:14→16:48)
[2025-04-30] MEDS: NSS (PRESERVATIVE FREE) 10 ML IV (10:20)
[2025-04-30] MEDS: PROTONIX IV 40 MG IV (10:20)
[2025-04-30 11:11] LABS: TSH < 0.02 uIU/ml (0.47-4.68)
[2025-04-30 12:00] VITALS: BP 160/82
[2025-04-30 12:04] LABS: Glycohemoglobin (HgbA1c) 5.0 % (4.0-5.6)
[2025-04-30 12:28] VITALS: BP 165/82
[2025-04-30 15:38] VITALS: BP 158/94
[2025-04-30] MEDS: LIPITOR 10 MG PO (16:49)
[2025-04-30] MEDS: XARELTO 15 MG PO (19:30)
[2025-04-30] MEDS: XANAX 0.25 MG PO (21:16)
[2025-04-30] MEDS: REMERON 15 MG PO (21:16)
[2025-04-30] MEDS: PROTONIX 40 MG PO (21:17)
[2025-04-30 23:50] VITALS: BP 160/78
[2025-05-01 06:07] LABS: Hematocrit 39.5 % (37.0-47.0); Hemoglobin 13.1 g/dL (12.0-16.0); Mean Corp Hgb Conc. 33.2 g/dL (33.0-37.0); Mean Corpuscular Volume 88.6 fL (81.0-99.0); Platelet Count 128 10^3/uL (130-400); Red Cell Dist. Width 13.9 % (11.5-14.5)
[2025-05-01 06:29] LABS: Blood Urea Nitrogen 10 mg/dl (7-17); Calcium 9.3 mg/dl (8.4-10.2); Carbon Dioxide 30 mmol/L (22-30); Chloride 107 mmol/L (98-107); Estimated Creatinine Clearance > 125 ml/min; Glucose 93 mg/dl (70-99); Potassium 4.0 mmol/L (3.5-5.1); Sodium 140 mmol/L (135-145); eGFR > 60.00
[2025-05-01 08:24] VITALS: BP 169/106; BP 198/119; BP 205/109; PULSE 54; PULSE 69; PULSE 72
[2025-05-01] MEDS: DITROPAN 5 MG PO (09:01)
[2025-05-01] MEDS: ERYTAB 125 MG PO ×3 (09:01→17:34)
[2025-05-01] MEDS: ZOLOFT 100 MG PO (09:02)
[2025-05-01] MEDS: SENOKOT-S 1 TABLET PO ×2 (09:03→21:20)
[2025-05-01] MEDS: PROTONIX 40 MG PO ×2 (09:03→21:20)
[2025-05-01] MEDS: TOPROL XL 100 MG PO (09:04)
[2025-05-01] MEDS: COZAAR 100 MG PO (09:07)
--- NOTE | 2025-05-01 09:47 | W.PN.GI.CBS2 ---
Addendum entered and electronically signed by Galdino Horner MD 05/01/25 11:28:
I saw and examined the patient.
The ACOUSTICAL LOGGING ENGINEER or PA's note was reviewed and I agree with the note.
Comment: Tolerating diet without n/v, much improved compared with admission
ABD soft NTND
REC:
Erythromycin TID with meals x 2 weeks, then try taper BID x 1 week, daily x 1 week.
Perhaps she has postinfectious gastroparesis that is slowly resolving, hopefully
If able to wean off erythromycin, resume prior dose of xarelto 20mg
F/U with Dr Hwang in office, pt requesting to switch to DH
Will sign off. Please call back if needed
Original Note:
Today's Communication / Plan
-
Pt feeling better able to eat some diet
noted severe gastroparesis-- post viral, idiopathic vs medication related vs other
discussed Ditropan as adding to symptoms -- pt was on medication then stopped for a while and restarted during admission -- t/c holding
would continue Emycin for 2 weeks then taper to BID x 1 week then daily x 1 week
cont protonix BID
return to hospital if not tolerating diet
reviewed dietary measures
pt asking about discharge -- to review medication with medical team
updated family and nursing staff
sent message to arrange OP GI follow up after admission
Assessment / Plan
-
64yyo with hx afib on Xarelto with prior ablation, HTN, hyperlipidemia, hypothyroidism,overactive bladder, factor V Leiden deficiency, MTHRF mutation, DVT, SCARLETT, arthritis obesity, depression, prior appe, prior hip and knee replacement with wt loss
over last years as due for joint replacement. She had lost about 60 lb then in January began with onset of nausea, vomiting, wt loss with inability to eat and further 40 lbs wt loss since that time. Family recall eating pizza prior to onset and only
medication change was adding Bupropion patch prior to onset. She has been to multiple inpatient and outpatient providers with continued symptoms since mid January including [facility], [facility], [facility] [place] and [facility] with multiple tests
completed but still with symptoms. In review with patient she is feeling better but per family now presents as she was lethargic and not eating for 8 days prior to admission. she does admits to stopping Bupropion patch 2 weeks ago and additional
opioid also discontinued in April. Last evaluation was with [facility] and Questran was added with no improvement. Extensive imaging and EGD as noted. 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
At this time she admits to continued nausea and wt loss. She admits to some vomiting not daily. Variable amount. Larger amount prompting [facility] admission but sometimes small volumes. She admits to abdominal pain and feeling of stomach ache.
She had chronic constipation on senna and denies diarrhea or rectal bleeding. . TSH <0.02, T4 14, CBC stable, chemistry mild glucose elevation, bili 1.9, AST 20, ALT 14, alkh phos 84. albumin 4.4 on admission then drop to 3.4.
Impression:
-Severe gastroparesis on GES
-nausea
-wt loss 100 lb last year 40 lbs since January
-recent stop of chronic pain medications
other med problems:
-hx afib on Xarelto with prior ablation
-HTN
-hyperlipidemia
-hypothyroidism
-overactive bladder
factor V Leiden deficiency, MTHRF mutation
- DVT
- SCARLETT
-arthritis
- obesity
- depression
- prior appe
-prior hip and knee replacement
PLAN:
Pt feeling better able to eat some diet
noted severe gastroparesis-- post viral, idiopathic vs medication related vs other
discussed Ditropan as adding to symptoms -- pt was on medication then stopped for a while and restarted during admission -- t/c holding
would continue Emycin for 2 weeks then taper to BID x 1 week then daily x 1 week
cont protonix BID
return to hospital if not tolerating diet
reviewed dietary measures
pt asking about discharge -- to review medication with medical team
updated family and nursing staff
sent message to arrange OP GI follow up after admission
Subjective
Subjective
Date of Service: May 01, 2025
Objective
Data Reviewed
Laboratory Data:
Laboratory Results
05/01/25 05:43
05/01/25 05:43
Laboratory Results
Magnesium 1.6 mg/dl (1.6-2.3) 04/26/25 06:52
Total Bilirubin 1.2 mg/dl (0.2-1.3) 04/29/25 08:10
AST 19 U/L (14-36) 04/29/25 08:10
ALT 15 U/L (0-35) 04/29/25 08:10
Alkaline Phosphatase 62 U/L (38-126) 04/29/25 08:10
Lipase 50 U/L (23-300) 04/26/25 06:52
Vital Signs and I&O:
Vital Signs
Temp Pulse Resp BP Pulse Ox
97.8 F 69 20 169/106 98
05/01/25 08:24 05/01/25 08:24 05/01/25 08:24 05/01/25 08:24 05/01/25 08:24
I&O
04/30/25 05/01/25 05/02/25
06:59 06:59 06:59
Intake Total 580 / 580 600 / 600
Balance 580 / 580 600 / 600
Physical Exam
Physical Exam
HEENT: Anicteric and Moist mucous membranes
Cardiology: Normal Sinus Rhythm
Pulmonary: Clear
GI: Soft, Non Distended and Non Tender
Extremities: No Edema
Neuro: Non Focal
[2025-05-01 09:58] VITALS: BP 192/98
[2025-05-01] MEDS: APRESOLINE 10 MG IV (10:42)
[2025-05-01] MEDS: TRANDATE 20 MG IV (13:19)
[2025-05-01] MEDS: TYLENOL 650 MG PO (13:30)
--- NOTE | 2025-05-01 13:32 | W.PN.HOSP.TC ---
Today's Communication/Plan
-
Continue erythromycin and gastro-paretic diet. IV antihypertensives and adjust oral.
Assessment / Plan
Assessment / Plan
Physical exam:
General: Well Developed, Well Nourished and No Apparent Distress
HEENT: Normocephalic, Atraumatic and Moist Mucous Membranes
Respiratory: Clear to Auscultation; Negative Wheezes, Rales or Rhonchi
Cardiac: Regular Rhythm and S1/S2
GI: Soft, Nontender and Nondistended
Musculoskeletal: No Clubbing, No Cyanosis and No Edema
Neuro: Awake, Alert and Oriented
Psych: Calm
IMPRESSION:
64F w/ paroxysmal atrial fibrillation, hypothyroid, hyperlipidemia, hypertension p/w essentially failure to thrive in the setting of worsening appetite over the last few weeks and significantly decreased appetite over the last 7 days with no p.o.
intake, sleepiness lethargy and dehydration. She has had extensive workup which has included an EGD showing no abnormalities, workup for ischemic bowel which was negative, and no evidence for gastroparesis, malabsorption or pancreatic
insufficiency.
Now found to have severe gastroparesis.
Severe gastroparesis
has had extensive outpt w/u
NM gastric emptying studying performed 04/29 and found to have severe gastroparesis
GI consulted, d/w Dr. Horner, starting erythromycin and continue. Adjusted Xarelto down from 20 to 15 mg
6 small meals
-s/p IVF. Continue antiemetics and PPI
-Protein calorie malnutrition labs
-PT OT
-Continue to encourage p.o. intake. Will dc when having adequate po and able to control n/v with po meds
- Stop Ditropan
- Discussed with at bedside
Hypertensive urgency
Given IV hydralazine 10 mg IV x 1. Followed by labetalol 20 mg IV x 1.
Reached out to her outpatient vulcanizer rubber plate since she will need adjustment of her outpatient regimen and waiting for callback (Dr Pérez [phone]). Will adjust regimen over the next 24 hours.
Atrial fibrillation
-permanent A-fib, rate controlled
-Continue oral Xarelto and toprol XL
d/w pharmacy and dose adjusted xarelto now that pt on erythromycin
Hyperlipidemia
-Continue atorvastatin
Hypothyroid
low TSH <0.02
Elevated T4
Hold levothyroxine for now
rechecked tsh still low will have pt cont to hold levothyroxine on dc
DVT prophylaxis�on Xarelto
CODE STATUS�full code
Total time spent on today's encounter was 50 minutes which included time spent in counseling the patient/family regarding diagnosis and treatment plan as listed above, goals of care, and symptom management. Case was discussed with nursing staff,
specialists, and care coordinators/case management. All labs and imaging personally reviewed by me. Remainder the time spent in detailed review of previous records, lab data, imaging, and other medical provider documentation.
Anticipated Discharge: 24 - 48 hours
Subjective/Interval History
-
Date of Service: May 01, 2025
Patient feels better overall but still not back to her baseline. No nausea or vomiting. Afebrile
Objective Data
-
Labs:
Laboratory Results
05/01/25
05:43
WBC 5.8
Hgb 13.1
Hct 39.5
Plt Count 128 L
Sodium 140
Potassium 4.0
Chloride 107
Carbon Dioxide 30
BUN 10
Creatinine 0.6
Glucose 93
Calcium 9.3
Vital Signs:
Vital Signs
Temp Pulse Resp BP Pulse Ox
97.8 F 76 20 192/98 98
05/01/25 08:24 05/01/25 09:58 05/01/25 08:24 05/01/25 09:58 05/01/25 08:24
I&O
04/30/25 05/01/25 05/02/25
06:59 06:59 06:59
Intake Total 580 / 580 600 / 600
Balance 580 / 580 600 / 600
[2025-05-01 15:35] VITALS: BP 136/65
--- NOTE | 2025-05-01 16:00 | CM ---
UR RN TT patient changed to Inpatient .IMM reviewed signed on chart.
Pt requested [facility] at discharge. Referral accepted in care port.
Roger will drive her home at discharge.
PLAN Home with [facility] fax [phone]
[2025-05-01] MEDS: LIPITOR 10 MG PO (17:33)
[2025-05-01] MEDS: XARELTO 15 MG PO (17:33)
[2025-05-01] MEDS: XANAX 0.25 MG PO (21:20)
[2025-05-01] MEDS: REMERON 15 MG PO (21:20)
[2025-05-01 23:15] VITALS: BP 140/69
[2025-05-02 08:00] VITALS: BP 188/98
[2025-05-02 08:10] LABS: Hematocrit 38.2 % (37.0-47.0); Hemoglobin 13.0 g/dL (12.0-16.0); Mean Corp Hgb Conc. 34.0 g/dL (33.0-37.0); Mean Corpuscular Volume 89.0 fL (81.0-99.0); Platelet Count 133 10^3/uL (130-400); Red Cell Dist. Width 14.1 % (11.5-14.5)
[2025-05-02] MEDS: ERYTAB 125 MG PO ×2 (08:24→11:52)
[2025-05-02] MEDS: PROTONIX 40 MG PO (08:24)
[2025-05-02] MEDS: SENOKOT-S 1 TABLET PO (08:24)
[2025-05-02] MEDS: COZAAR 100 MG PO (08:25)
[2025-05-02] MEDS: ZOLOFT 100 MG PO (08:25)
[2025-05-02] MEDS: NORVASC 5 MG PO (08:25)
[2025-05-02] MEDS: TOPROL XL 100 MG PO (08:25)
[2025-05-02 08:41] LABS: Blood Urea Nitrogen 9 mg/dl (7-17); Calcium 9.0 mg/dl (8.4-10.2); Carbon Dioxide 30 mmol/L (22-30); Chloride 108 mmol/L (98-107); Estimated Creatinine Clearance > 125 ml/min; Glucose 93 mg/dl (70-99); Magnesium 1.7 mg/dl (1.6-2.3); Potassium 4.5 mmol/L (3.5-5.1); Sodium 141 mmol/L (135-145); eGFR > 60.00
--- NOTE | 2025-05-02 08:51 | W.PN.HOSP.TC ---
Addendum entered and electronically signed by Edilberto Roper MD 05/02/25 16:09:
Severe Protein Calorie Malnutrition Malnutrition
Original Note:
Today's Communication/Plan
-
Discharge planning
Assessment / Plan
Assessment / Plan
Physical exam:
General: Well Developed, Well Nourished and No Apparent Distress
HEENT: Normocephalic, Atraumatic and Moist Mucous Membranes
Respiratory: Clear to Auscultation; Negative Wheezes, Rales or Rhonchi
Cardiac: Regular Rhythm and S1/S2
GI: Soft, Nontender and Nondistended
Musculoskeletal: No Clubbing, No Cyanosis and No Edema
Neuro: Awake, Alert and Oriented
Psych: Calm
IMPRESSION:
64F w/ paroxysmal atrial fibrillation, hypothyroid, hyperlipidemia, hypertension p/w essentially failure to thrive in the setting of worsening appetite over the last few weeks and significantly decreased appetite over the last 7 days with no p.o.
intake, sleepiness lethargy and dehydration. She has had extensive workup which has included an EGD showing no abnormalities, workup for ischemic bowel which was negative, and no evidence for gastroparesis, malabsorption or pancreatic
insufficiency.
Now found to have severe gastroparesis.
Severe gastroparesis
has had extensive outpt w/u
NM gastric emptying studying performed 04/29 and found to have severe gastroparesis
GI consulted, d/w Dr. Horner, starting erythromycin and continue. Adjusted Xarelto down from 20 to 15 mg
6 small meals
-s/p IVF. Continue antiemetics and PPI
-Protein calorie malnutrition labs
-PT OT
-Continue to encourage p.o. intake. Will dc when having adequate po and able to control n/v with po meds. Patient and feel comfortable going home today.
- Stop Ditropan
- Discussed with at bedside
Hypertensive urgency
Given IV hydralazine 10 mg IV x 1. Followed by labetalol 20 mg IV x 1.
Reached out to her outpatient pre sales architect since she will need adjustment of her outpatient regimen and waiting for callback (Dr Pérez [phone]). Added Norvasc 5 mg p.o. daily and that seems to be working well. Cardiology office never called
back so discussed with patient that she can follow-up as outpatient with them and continue with current treatment.
Atrial fibrillation
-permanent A-fib, rate controlled
-Continue oral Xarelto and toprol XL
d/w pharmacy and dose adjusted xarelto now that pt on erythromycin
Hyperlipidemia
-Continue atorvastatin
Hypothyroid
low TSH <0.02
Elevated T4
Hold levothyroxine for now
rechecked tsh still low will have pt cont to hold levothyroxine on dc
DVT prophylaxis�on Xarelto
CODE STATUS�full code
Anticipated Discharge: Today
Subjective/Interval History
-
Date of Service: May 02, 2025
Patient tolerating diet. No chest pain shortness of breath nausea or vomiting.
Objective Data
-
Labs:
Laboratory Results
05/02/25
07:30
WBC 6.0
Hgb 13.0
Hct 38.2
Plt Count 133
Sodium 141
Potassium 4.5
Chloride 108 H
Carbon Dioxide 30
BUN 9
Creatinine 0.5 L
Glucose 93
Calcium 9.0
Vital Signs:
Vital Signs
Temp Pulse Resp BP Pulse Ox
97.8 F 72 18 188/98 98
05/02/25 08:00 05/02/25 08:00 05/02/25 08:00 05/02/25 08:00 05/02/25 08:00
I&O
05/01/25 05/02/25 05/03/25
06:59 06:59 06:59
Intake Total 600 / 600 180 / 180
Balance 600 / 600 180 / 180
[2025-05-02 09:37] VITALS: BP 183/93
[2025-05-02] MEDS: APRESOLINE 10 MG IV (09:41)
[2025-05-02 11:57] VITALS: BP 127/73
[2025-05-02] MEDS: TYLENOL 650 MG PO (11:59)
--- NOTE | 2025-05-02 12:36 | W.DCSUMMARY ---
Addendum entered and electronically signed by Edilberto Roper MD 05/03/25 09:19:
Called pharmacy and clarified prescription of erythromycin-it is 125 mg tabs same frequency as prescribed. Updated patient's over the phone.
Original Note:
Discharge Summary
Discharge Data
Date of Admission: 05/01/25
Date of Discharge: 05/02/25
Total time spent discharging patient (in min): 35
-
Pending Results: No
Hospital Course
Patient 64-year-old female history of A-fib, SCARLETT, osteoarthritis, depression, came into the hospital with abdominal pain, weight loss, failure to thrive, satiety and nausea all consistent with gastroparesis. GI consulted. She was treated with
supportive care. She had a gastric emptying study that confirmed the evidence of severe gastroparesis. She was initiated on erythromycin and PPI. Her blood pressure also was elevated and we added an new antihypertensive with a calcium channel
blockers. Her anticoagulation was adjusted due to being on erythromycin until she finishes the course as outpatient. She also had very abnormal low TSH and her thyroid replacement was on hold and plan to restart as outpatient. Otherwise, patient
feels much improved and tolerating small and frequent diet. She will need close follow-up as outpatient with GI. She will be discharged in relatively stable condition today.
Discharge duration: 35 minutes
Discharge Plan
-
Patient Disposition: Home with Home Care
Discharge Diagnosis/Procedures: Severe gastroparesis. Hypertensive urgency. Permanent atrial fibrillation. Hypothyroidism with very low TSH.
Diet: Low Cholesterol and Other diet
Additional Diets: Gastro-paretic diet with small meals 6 times a day
Activity: As tolerated
Blood Work: Please PCP to order CBC, BMP within 1 week
Referrals:
Kelsey Hwang MD [Active, Gastroenterology]
Referral Note: call to arrange GI follow up with Dr. Hwang or nurse practitioner
Alicia Delatorre NP [Family Provider, General] - in less than 1 week
Prescriptions:
New
erythromycin 250 mg Tablet,Delayed Release (Dr/Ec)
125 mg PO AC Qty: 63 0RF
Rx Instructions:
1 tab three times a day for 2 weeks. Then twice a day for 1 week. Then once a day for 1 week.
amlodipine 5 mg Tablet
5 mg PO DAILY 30 Days Qty: 30 0RF
Xarelto 15 mg tablet
15 mg PO DAILY Qty: 30 0RF
Continued
losartan 50 mg Tablet
75 mg PO DAILY
atorvastatin 10 mg Tablet
10 mg PO QPM
metoprolol succinate 100 mg Tablet Extended Release 24 Hr
100 mg PO DAILY
scopolamine base 1 mg over 3 days Patch 3 Day
1 patch TRANSDERMAL Q3D
buprenorphine 5 mcg/hour Patch Weekly
1 patch TRANSDERMAL Q7D
acetaminophen 650 mg Tablet Extended Release
1,300 mg PO Q8H PRN (Reason: headaches)
alum-mag hydroxide-simeth 200-200-20 mg/5 mL Suspension
30 ml PO TID
polyethylene glycol 3350 [Miralax] 17 gram/dose Powder
4 g PO DAILY PRN (Reason: constipation)
metoclopramide HCl [Reglan] 10 mg Tablet
10 mg PO TID PRN (Reason: nausea)
Zofran
4 mg PO TID PRN (Reason: nausea)
senna
2 tab PO TID PRN (Reason: constipation)
Changed
omeprazole 40 mg capsule,delayed release(DR/EC)
40 mg PO BID Qty: 60 0RF
Held
levothyroxine 200 mcg Tablet
200 mcg PO DAILY
Hold Instructions: Resume on 05/06/25.
Xarelto 20 mg Tablet
20 mg PO QPM
Hold Instructions: Resume on 05/31/25.
Discontinued
pantoprazole 40 mg Tablet,Delayed Release (Dr/Ec)
40 mg PO TID PRN (Reason: nausea)
Discharge Orders:
Discharge Patient (As Directed); Ordered 05/02/25
Ordered By: Edilberto Roper
Discharge Date and Time
Discharge Date/Time: 05/02/25 15:26
Print Language: [place]AP[place]
--- NOTE | 2025-05-02 13:44 | CM ---
CM reviewed chart, patient for discharge today. Family to transport home. Update to [facility] on discharge status. CM will continue to follow for all discharge planning needs.
Plan; home with [facility]
[facility] fax [phone]
--- NOTE | 2025-05-02 16:01 | PN.CDI ---
CDI
- -
CDI:
Physician Documentation Request
Admit Date: 05/01/25 08:05
Dear Doctor Judson,
Please review the following and provide your response in the progress notes.
Clinical Indicators:
Pt admitted with dehydration/Hypovolemia found to have severe gastroparesis
Documented in the record, ' 100 lbs 1 year, 40 lbs since January )..'
Nutrition consult 04/26 and notes 04/28 & 05/01, ' Current BW: (04/25) 271 lbs 2.697 ozz BMI: 40.0 (obese). Weight history (04/05/25) 295 lbsPatient meets AND and ASPEN criteria for severe protein calorie malnutrition of chronic disease for a loss of
more than 7.5% BW over 3 months and less than 75% estimated nutrition needs met over more than 1 month.'
Based on the above information and your assessment, which of the following most accurately represents the patient's nutritional status?
Severe Protein Calorie Malnutrition Malnutrition
Other (please specify)
[place] Criteria (ACP Hospitalist 2017)
2 or more criteria must be present for either
non severe or severe malnutrition
Note that the criteria differs related to the
presence of an acute or chronic illness
Acute Illness Chronic Illness
Energy Intake Non Severe: <75% for >7 days Non Severe: <75% for >1 month
Severe: <50% for >5 days Severe: <75% for >1 month
Weight Loss Non Severe: 1-2% over 1 week Non Severe: 5% over 1 month
5% over 1 month 7.5% over 3 months
7.5% over 3 months 10% over 6 months
1 year N/A 20% over 1 year
Severe: >2% over 1 week Severe: >5% over 1 month
>5% over 1 month >7.5% over 3 months
>7.5% over 3 months >10% over 6 months
1 year N/A >20% over 1 year
Body Fat Non Severe: Mild Decrease Non Severe: Mild Loss
Severe: Moderate Decrease Severe: Severe Loss
Muscle Mass Non Severe: Mild Decrease Non Severe: Mild Loss
Severe: Moderate Decrease Severe: Severe Loss
Fluid Accumulation Non Severe: Mild Accumulation Non Severe: Mild Accumulation
Severe: Moderate to severe Severe: Moderate to severe
accumulation accumulation
Reduced Supervisory It Specialist Strength Non Severe: N/A Non Severe: N/A
Severe: Measurably reduced Severe: Measurably reduced
Use of terms such as suspected, likely, concern for, or probable (associated with a specific diagnosis that is being evaluated, monitored, or treated as if it exists) are acceptable and can be coded in the inpatient setting, when documented at the
time of discharge.
Thank you,
Elizabeth Linares RN
CDI Specialist
[place] [employer]
Please use your independent medical judgment in providing your response.
== END 2025-05-02 15:26 | disposition home health service (06) | DRG 391 ==
LOC: 4 WEST ACU 08:05
PROVIDERS: Internal Medicine; Nurse Practitioner; Student in an Organized Health Care Education/Training Program; ADMITTING PHYSICIAN Internal Medicine; ATTENDING PHYSICIAN Hospitalist; CONSULT PHYSICIAN Internal Medicine Gastroenterology; EMERGENCY PHYSICIAN Emergency Medicine; FAMILY PHYSICIAN Nurse Practitioner Gerontology
DX: K31.84 Gastroparesis (principal); E43 Unspecified severe protein-calorie malnutrition; I48.21 Permanent atrial fibrillation; I16.0 Hypertensive urgency; E03.9 Hypothyroidism, unspecified; F32.A Depression, unspecified; G47.33 Obstructive sleep apnea (adult) (pediatric); R62.7 Adult failure to thrive; Z79.891 Long term (current) use of opiate analgesic; Z79.890 Hormone replacement therapy; Z79.01 Long term (current) use of anticoagulants; E78.00 Pure hypercholesterolemia, unspecified; K58.9 Irritable bowel syndrome, unspecified; Z90.49 Acquired absence of other specified parts of digestive tract; Z96.653 Presence of artificial knee joint, bilateral; Z96.641 Presence of right artificial hip joint; Z88.8 Allergy status to other drugs, medicaments and biological substances; Z68.38 Body mass index [BMI] 38.0-38.9, adult; I10 Essential (primary) hypertension; E66.9 Obesity, unspecified; D25.9 Leiomyoma of uterus, unspecified; E86.0 Dehydration; E86.1 Hypovolemia; G89.29 Other chronic pain; K21.9 Gastro-esophageal reflux disease without esophagitis; M16.12 Unilateral primary osteoarthritis, left hip; Z79.899 Other long term (current) drug therapy
CPT/HCPCS: 78264; 80048; 80053; 81003; 81015; 82607; 83036; 83690; 83735; 84134; 84436; 84439; 84443; 85025; 85027; 96360; 97162; 99284; A9541

== ENCOUNTER 2025-08-07 16:17 | Emergency (ER) | payer MEDICARE, OTHER, SELFPAY ==
[2025-08-07 16:25] VITALS: BP 125/88
[2025-08-07 16:55] LABS: Hematocrit 37.9 % (37.0-47.0); Hemoglobin 12.2 g/dL (12.0-16.0); Mean Corp Hgb Conc. 32.2 g/dL (33.0-37.0); Mean Corpuscular Volume 95.5 fL (81.0-99.0); Nucleated Red Blood Cells % 0 %; Platelet Count 181 10^3/uL (130-400); Red Cell Dist. Width 13.9 % (11.5-14.5)
[2025-08-07 16:56] LABS: Urine Character Clear (Clear)
[2025-08-07 17:03] LABS: Urine Red Blood Cell 80-90 /HPF (0-2); Urine White Cell 0-2 /HPF (0-5)
[2025-08-07 17:11] LABS: ALT (SGPT) 15 U/L (0-35); AST (SGOT) 19 U/L (14-36); Albumin 4.3 g/dl (3.5-5.0); Alkaline Phosphatase 100 U/L (38-126); Blood Urea Nitrogen 16 mg/dl (7-17); Calcium 9.5 mg/dl (8.4-10.2); Carbon Dioxide 32 mmol/L (22-30); Chloride 100 mmol/L (98-107); Glucose 88 mg/dl (70-99); Potassium 4.6 mmol/L (3.5-5.1); Sodium 136 mmol/L (135-145); Total Protein 7.1 g/dl (6.3-8.2); eGFR > 60.00
--- NOTE | 2025-08-07 18:20 | ED.GENMED ---
History of Present Illness
General
Chief Complaint: Vaginal Bleeding
Source: patient and spouse
Exam Limitations: none
Time Seen by Provider: 08/07/25 17:30
Nursing documentation reviewed up to this point in time: agreed with
History of Present Illness
History of Present Illness:
64 yo female w h/o left hip replacement 3 weeks ago at [facility] sleep apnea/CPAP, A-fib on Xarelto, DVT, HTN, HLD, hypothyroid, factor B Leiden, anxiety/depression presents for abnormal vaginal bleeding. She states she had removal of
Mirena device about 7 months ago and had very little spotting at that time. There has been no bleeding since. She states last night she noted a gush of blood in the toilet, has been wearing a pad. She had another gush this morning, other than
that she has used only 3 pads between last night and today. She denies abdominal cramping/pain. She denies N/V/D/C.
She had outpatient laboratory work last week and was called by her PCP today telling her her liver enzymes were 'through the roof.' She went and saw her PCP today and because of the vaginal bleeding reported was sent here for evaluation.
Patient states when she urinated today her urine looked dark.
Past History
Past History
ED Past Medical History: Arrthythmia (afib on Xarelto), HTN, Hypercholesterolemia, Hypothyroidism, Psychiatric (anxiety/depression) and Other (Gastroparesis)
ED Past Surgical History: Cardiac (ablation) and Orthopedic
Social History
Tobacco: Non-smoker
Alcohol: None
Personal:
Review of Systems
Review of Systems
Allergies reviewed?: Yes
All Other Systems: ROS reviewed and negative except as documented in HPI and ROS
Constitutional: Denies fever or fatigue
Respiratory: Denies trouble breathing
Cardiac: Denies chest pain
ABD/GI: Denies abdominal pain, nausea or vomiting
: Reports bleeding; Denies dysuria, frequency, difficulty voiding or urgency
Musculoskeletal: Reports no symptoms
Skin: Reports no symptoms
Neurological: Reports no symptoms
Phy Exam
Physical Exam
Physical Exam:
GENERAL: No acute distress. A&Ox3.
CONSTITUTIONAL: Afebrile.
EYES: clear, conjunctivae normal
ENMT: moist mucus membranes, Pharynx nl
RESPIRATORY: Regular respirations, nonlabored, lungs clear.
CARDIOVASCULAR: Regular rate and rhythm, no murmurs, no rubs.
GI: Soft, nontender, normal BS
: small amount blood on pad
MUSCULOSKELETAL: Moves with ease. Well perfused.
SKIN: Warm, dry, pink
PSYCH: Normal mood and affect. Well kept, interactive and appropriate
NEUROLOGIC: Awake, alert and oriented. No focal neurological deficits
Course
Orders/Labs/Results
Orders:
Orders
08/07/25 16:38
Complete Blood Count/With Diff Urgent
Comprehensive Metabolic Panel Urgent
08/07/25 16:43
Urinalysis Reflex To Culture Urgent
Date Specimen was Collected: 08/07/25
Time Specimen was Collected: 16:29
Urine Microscopic Reflex Cult Urgent
08/07/25 17:55
US Pelvis W Transvag Combined Urgent
Comment:
Reason For Exam: abnormal vaginal bleeding
Abnormal Lab Results
08/07/25 08/07/25
16:38 16:43
RBC 3.97 L 10^6/uL
(4.20-5.40)
MCHC 32.2 L g/dL
(33.0-37.0)
MPV 11.2 H fL
(7.4-10.4)
Lymphocytes % 19.7 L %
(20.5-51.1)
Carbon Dioxide 32 H mmol/L
(22-30)
Creatinine 0.5 L mg/dL
(0.6-1.0)
Ur Occult Blood Reflex 4+ A
(Negative)
Urine RBC 80-90 A /HPF
(0-2)
Urine Bacteria (Reflex) Few A
(Negative)
Urine Albumin (Reflex) 1+ A
(Neg - Trace)
08/07/25 16:38
08/07/25 16:38
Vital Signs
Initial and Last Documented VS:
Initial Vital Signs
Temp Pulse Resp BP Pulse Ox
98.7 F 68 18 125/88 100
08/07/25 16:25 08/07/25 16:25 08/07/25 16:25 08/07/25 16:25 08/07/25 16:25
Last Documented Vital Signs
Temp Pulse Resp BP Pulse Ox
98.7 F 60 20 145/94 98
08/07/25 16:25 08/07/25 21:15 08/07/25 21:15 08/07/25 21:15 08/07/25 21:15
MDM/Problems Addressed
Differential Diagnosis Includes:
Hormonal imbalance, postmenopausal bleeding, endometrial pathology, side effect of anticoagulation medication
MDM/Problems Addressed:
64 yo female w h/o left hip replacement 3 weeks ago at [facility] sleep apnea/CPAP, A-fib on Xarelto, DVT, HTN, HLD, hypothyroid, factor B Leiden, anxiety/depression presents for abnormal vaginal bleeding. She states she had removal of
Mirena device about 7 months ago and had very little spotting at that time. There has been no bleeding since. She states last night she noted a gush of blood in the toilet, has been wearing a pad. She had another gush this morning, other than
that she has used only 3 pads between last night and today. She denies abdominal cramping/pain. She denies N/V/D/C.
She had outpatient laboratory work last week and was called by her PCP today telling her her liver enzymes were 'through the roof.' She went and saw her PCP today and because of the vaginal bleeding reported was sent here for evaluation.
Patient states when she urinated today her urine looked dark.
7:10 p.m.
CBC normal
CMP normal
I spoke with Malachi in [place], he states as long as pt can tolerate the NURSING HOME AIDE stirrups, she can have US transvaginally and does not have to fill her bladder.
He sent her back because she told him she could not flex her hips significantly due to recent L hip replacement. She and say they were told to not flex hips more than 90 degrees such as bending over to tie shoes.
She states she will be comfortable laying back on the table with feet in stirrups.
Pt back to [place]
CT radiology report read: IMPRESSION:
Markedly limited study due to patient debility and lack of mobility.
Enlarged fibroid uterus, endometrium not discretely identified. Consider elective Pelvic MRI for more complete evaluation.
Right ovary not visualized.
3.5 cm simple appearing left ovarian cyst.
No significant vaginal bleeding since arrival.
Chronic conditions affecting care: Other (Recent L hip replacement)
*Pulse Oximetry
SaO2: 100
Oxygen Mode of Delivery: Room air
Patient hypoxic: no
*Critical Care Note
Total Time (30-74mins, 75-104mins- exclusive of procedures): Not Applicable
ED Attending Note
-
Portions of this chart may have been created with voice recognition software.� Occasional wrong word or��sound alike� substitutions may have occurred due to the inherent limitations of voice recognition software.
Discharge Plan
Departure
Patient Disposition: Home (Routine Discharge)
Date of Disposition: 08/07/25
Time of Disposition: 20:58
Patient with high blood pressure during this ER visit?: No
Condition: Good
Discharge Problem:
Vaginal bleeding
Instructions: Bleeding after menopause
Prescriptions:
No Action
losartan 50 mg Tablet
75 mg PO DAILY
atorvastatin 10 mg Tablet
10 mg PO QPM
metoprolol succinate 100 mg Tablet Extended Release 24 Hr
100 mg PO DAILY
levothyroxine 200 mcg Tablet
200 mcg PO DAILY
scopolamine base 1 mg over 3 days Patch 3 Day
1 patch TRANSDERMAL Q3D
buprenorphine 5 mcg/hour Patch Weekly
1 patch TRANSDERMAL Q7D
Xarelto 20 mg Tablet
20 mg PO QPM
acetaminophen 650 mg Tablet Extended Release
1,300 mg PO Q8H PRN (Reason: headaches)
alum-mag hydroxide-simeth 200-200-20 mg/5 mL Suspension
30 ml PO TID
polyethylene glycol 3350 [Miralax] 17 gram/dose Powder
4 g PO DAILY PRN (Reason: constipation)
metoclopramide HCl [Reglan] 10 mg Tablet
10 mg PO TID PRN (Reason: nausea)
Zofran
4 mg PO TID PRN (Reason: nausea)
senna
2 tab PO TID PRN (Reason: constipation)
erythromycin 250 mg Tablet,Delayed Release (Dr/Ec)
125 mg PO AC Qty: 63 0RF
Rx Instructions:
1 tab three times a day for 2 weeks. Then twice a day for 1 week. Then once a day for 1 week.
amlodipine 5 mg Tablet
5 mg PO DAILY 30 Days Qty: 30 0RF
Xarelto 15 mg tablet
15 mg PO DAILY Qty: 30 0RF
omeprazole 40 mg capsule,delayed release(DR/EC)
40 mg PO BID Qty: 60 0RF
Referrals:
Your NURSING HOME AIDE doctor [Other] - Call in 1-3 days for appt
Alicia Delatorre NP [Family Provider, General]
Activity Restrictions/Additional Instructions:
As we discussed, you have a uterine fibroid, this may or may not be cause of your bleeding.
Your blood work shows no sign of worrisome/dangerous amount of bleeding
Make appointment with your NURSING HOME AIDE doctor within the next 2 weeks. Inform of today's visit, take your lab work and ultrasound report with you. You may require further testing
Return here immediately if you soak more than a pad an hour for more than 4 hours.
Interventions
Interventions:
*Risk Screen - Suicide Last Done: 08/07/25 16:25
*General Assessment Last Done: 08/07/25 16:25
*Neglect/Abuse Screening Last Done: 08/07/25 16:25
*ED COVID-19 Vaccine History Last Done: 08/07/25 18:23
*ED Influenza Vaccine History Last Done: 08/07/25 18:23
[facility] Fall Risk Assessment Tool Last Done: 08/07/25 18:22
*Nursing Disposition Last Done: 08/07/25 21:15
ED-Female Genitourinary Assessment Last Done: 08/07/25 19:00
Discharge Date and Time
Discharge Date/Time: 08/07/25 21:15
Print Language: HAITIAN
[2025-08-07 21:15] VITALS: BP 145/94
== END 2025-08-07 21:15 | disposition home or self-care (01) ==
LOC: EMR 16:17
PROVIDERS: Emergency Medicine; EMERGENCY PHYSICIAN Emergency Medicine; FAMILY PHYSICIAN Nurse Practitioner Gerontology
DX: N93.9 Abnormal uterine and vaginal bleeding, unspecified (principal); D25.9 Leiomyoma of uterus, unspecified; N83.292 Other ovarian cyst, left side; I48.91 Unspecified atrial fibrillation; I10 Essential (primary) hypertension; E78.00 Pure hypercholesterolemia, unspecified; G47.30 Sleep apnea, unspecified; D68.51 Activated protein C resistance; E03.9 Hypothyroidism, unspecified; K31.84 Gastroparesis; F41.9 Anxiety disorder, unspecified; F32.A Depression, unspecified; Z86.718 Personal history of other venous thrombosis and embolism; Z96.642 Presence of left artificial hip joint
CPT/HCPCS: 99284; 76830; 76856; 80053; 81003; 81015; 85025